=== PATIENT | male | born 1950 | race Caucasian/White ===

== ENCOUNTER → 2018-07-23 | Outpatient (CLI) | payer BC ==
--- NOTE | 2018-07-24 08:38 | KCIC ---
MRI left knee without contrast dated 07/23/2018 3:30 PM Indication: Knee pain history of arthritis . Instability Comparison: None Technique: Routine multiplanar multisequence imaging performed. . Findings: Moderate tricompartmental hypertrophic change with prominent marginal osteophytes. Thinning and surface irregularity of the articular cartilage throughout. Broad zones of full-thickness cartilage loss over the weightbearing surfaces medial femoral condyle and medial tibial plateau. Near full-thickness cartilage fissuring of the lateral patellar facet. Small joint effusion. There are multiple loose bodies at the posterior joint space. There is a small popliteal cyst with cystic focus extending along the pes anserine bursa with loose bodies at the inferior medial joint space and within the bursa. There is also a cystic focus along the posterior lateral aspect of the distal femur that measures 3.5 cm, likely a ganglion cyst. Anterior cruciate and posterior cruciate ligaments intact. Medial and lateral collateral complexes are intact. Iliotibial band, popliteus tendon and pes anserine compress within normal limits Quadriceps and patellar tendon are intact. No abnormality of the medial or lateral retinaculum. There is blunted morphology of the posterior horn of medial meniscus with linear signal throughout the meniscal substance. The anterior horn is intact. Minimal blunting of the medial meniscal body. Lateral meniscus normal in morphology and signal. There are a few prominent venous varicosities along the medial aspect of the knee. IMPRESSION: 1. Complex tear posterior horn of medial meniscus. 2. Moderate tricompartmental degenerative arthrosis and chondral malacia. Full-thickness cartilage loss at the medial compartment. 3. Small joint effusion and small popliteal cyst. There are multiple loose bodies throughout the joint space. 4. Septated cystic focus along the posterior lateral aspect of the distal femur, likely ganglion cyst. 5. Complex pes anserine bursitis. Electronically signed by: Dustin Parker MD (07/24/2018 8:36 AM) [facility]2
== END | disposition home or self-care (01) ==
LOC: KCIC MRI 15:08
PROVIDERS: ATTEND Nurse Practitioner Family
DX: S83.242A Other tear of medial meniscus, current injury, left knee, initial encounter (principal); M17.12 Unilateral primary osteoarthritis, left knee; M25.462 Effusion, left knee; M71.22 Synovial cyst of popliteal space [Baker], left knee; M71.562 Other bursitis, not elsewhere classified, left knee; X58.XXXA Exposure to other specified factors, initial encounter; Y93.89 Activity, other specified; Y92.89 Other specified places as the place of occurrence of the external cause; Y99.8 Other external cause status
CPT/HCPCS: 73721

== ENCOUNTER 2021-10-19 11:30 | Inpatient (IN) | payer BC, MEDICARE ==
[~2021-10-19] VITALS: Ht 172.7 cm; Wt 99.3 kg
--- NOTE | 2021-10-19 12:50 | ED.ADGEN ---
Past Medical History Additional Past Medical Histor: psoriasis Past Surgical History: Other Additional Past Surgical Histo: wrist, cataracts General Adult EDM: Chief Complaint: MECHANICAL FALL HPI: HPI: Patient is a 71 year old male coming in from home via EMS. Patient was evaluated at [place] emergency department yesterday after a fall off a ladder. Patient had a dislocated ankle with a distal fibula fracture of his left ankle. Ankle was reduced and splinted. And the x-ray did not been resulted came back as a tibial plateau fracture and a proximal fibula fracture. Patient was told to come back to the emergency department for evaluation. He has not been able to manage crutches or care for himself, at home recently had knee replacement and is unable to assist him. Review of Systems: Review of Systems: All other systems within normal limits except for as noted in the HPI Current Medications: Current Medications Medications (Trade) Dose Ordered Sig/Mauricio Start Time Stop Time Status Last Admin Dose Admin Fentanyl Citrate (Fentanyl 2ml Vial) 75 mcg 1X ONCE 10/19/21 13:15 10/19/21 13:51 DC 10/19/21 14:25 75 MCG Physical Exam: PE: Constitutional: Well developed, well nourished, no acute distress, non-toxic appearance. [] HENT: Normocephalic, atraumatic, bilateral external ears normal, nose normal. [] Eyes: PERRLA, conjunctiva normal, no discharge. [] Neck: No rigidity, supple, no stridor. [] Cardiovascular: Regular rate and rhythm, brisk cap refill [] Lungs & Thorax: Non labored symmetric respirations, no tachypnea or respiratory distress [] Abdomen: Soft, nondistended. Skin: Warm, dry, no erythema, no rash. [] Back: Unremarkable Extremities: No deformities, range of motion grossly intact, no lower extremity edema. Left knee swelling and tenderness, short posterior splint on left lower extremity [] Neurologic: Alert and oriented X 3, no focal deficits noted. [] Psychologic: Affect normal, judgement normal, mood normal. [] Current Patient Data: Labs: Laboratory Tests Test 10/19/21 13:18 White Blood Count 9.2 x10^3/uL (4.0-11.0) Red Blood Count 4.03 x10^6/uL (4.30-5.70) L Hemoglobin 12.6 g/dL (13.0-17.5) L Hematocrit 37.4 % (39.0-53.0) L Mean Corpuscular Volume 93 fL (79-100) Mean Corpuscular Hemoglobin 31 pg (25-35) Mean Corpuscular Hemoglobin Concent 34 g/dL (31-37) Red Cell Distribution Width 12.9 % (11.5-14.5) Platelet Count 221 x10^3/uL (140-400) Neutrophils (%) (Auto) 69 % (31-73) Lymphocytes (%) (Auto) 18 % (24-48) L Monocytes (%) (Auto) 11 % (0-9) H Eosinophils (%) (Auto) 2 % (0-3) Basophils (%) (Auto) 1 % (0-3) Neutrophils # (Auto) 6.3 x10^3/uL (1.8-7.7) Lymphocytes # (Auto) 1.6 x10^3/uL (1.0-4.8) Monocytes # (Auto) 1.0 x10^3/uL (0.0-1.1) Eosinophils # (Auto) 0.1 x10^3/uL (0.0-0.7) Basophils # (Auto) 0.1 x10^3/uL (0.0-0.2) Sodium Level 140 mmol/L (136-145) Potassium Level 4.5 mmol/L (3.5-5.1) Chloride Level 101 mmol/L (98-107) Carbon Dioxide Level 28 mmol/L (21-32) Anion Gap 11 (6-14) Blood Urea Nitrogen 11 mg/dL (8-26) Creatinine 1.0 mg/dL (0.7-1.3) Estimated GFR (Cockcroft-Gault) 73.2 BUN/Creatinine Ratio 11 (6-20) Glucose Level 91 mg/dL (70-99) Calcium Level 9.0 mg/dL (8.5-10.1) Total Bilirubin 1.0 mg/dL (0.2-1.0) Aspartate Amino Transferase (AST) 30 U/L (15-37) Alanine Aminotransferase (ALT) 25 U/L (16-63) Alkaline Phosphatase 53 U/L (46-116) Total Protein 8.6 g/dL (6.4-8.2) H Albumin 3.5 g/dL (3.4-5.0) Albumin/Globulin Ratio 0.7 (1.0-1.7) L Laboratory Tests 10/19/21 13:18 Laboratory Tests 10/19/21 13:18 Vital Signs: Vital Signs Date Time Temp Pulse Resp B/P (MAP) Pulse Ox O2 Delivery O2 Flow Rate FiO2 10/19/21 11:30 98.8 76 16 172/78 (109) 96 Room Air 98.8 EKG: EKG: [] Heart Score: C/O Chest Pain: No Risk Factors: Risk Factors: DM, Current or recent (<one month) smoker, HTN, HLP, family histo ry of CAD, obesity. Risk Scores: Score 0 - 3: 2.5% MACE over next 6 weeks - Discharge Home Score 4 - 6: 20.3% MACE over next 6 weeks - Admit for Clinical Observation Score 7 - 10: 72.7% MACE over next 6 weeks - Early Invasive Strategies Radiology/Procedures: Radiology/Procedures: [facility] [address] [place] [address] IMAGING REPORT Signed PATIENT: YESIKA ZAMARRIPA ACCOUNT: [id number] : 1950 LOCATION: ER AGE: 71 SEX: M EXAM STATUS: REG ER ORD. PHYSICIAN: IRINA QUIROZ MD REASON: fractures, knee and tib fib PROCEDURE: CT LOWER EXTREMITY WO LEFT EXAMINATION: CT LOWER LEFT EXTREMITY WITHOUT CONTRAST, 10/19/2021 12:42 PM CLINICAL INDICATION: Fractures of knee, tibia, and fibula COMPARISON: Left knee and ankle radiograph 10/18/2020 TECHNIQUE: Helical CT imaging performed of the left lower extremity from just above the knee through the ankle without the use of intravenous contrast. Sagittal and coronal reformats were obtained. One or more of the following individualized dose reduction techniques were utilized for this examination: 1. Automated exposure control 2. Adjustment of the mA and/or kV according to patient size 3. Use of iterative reconstruction technique. FINDINGS: There are acute fractures of the lateral and medial tibial plateaus posteriorly with 8 mm and 3 mm of depression, respectively. The visualized portion of the distal femur and patella are intact. Degenerative joint disease at the knee and chronic lateral subluxation of the tibia relative to femur is similar to MRI 07/23/2018. There are small chronic ossified bodies along the posterior medial aspect of the knee. There is a hemarthrosis and large Floyd's cyst. Change edema about the knee. There is an acute segmental fibular shaft fracture with an oblique component at the proximal fibular diaphysis displaced by one cortex width, and an oblique co mponent at the distal fibular diaphysis displaced by one half shaft width. There is a slightly displaced and rotated medial malleolar fracture. There is a minimally displaced small posterior malleolar fracture measuring 2.0 x 1.2 x 0.5 cm (transverse by CC by AP). This results in a 3 mm gap at the posterior articular surface. Probable small avulsion fracture of the anterolateral rim of the distal tibia (image 11, series 3) There is a tibiotalar joint effusion. Tendons are grossly intact without evidence of entrapment. There is subcutaneous edema in the ankle and foot. IMPRESSION: 1. Fractures of the lateral and medial tibial plateaus posteriorly with 8 mm and 3 mm of depression, respectively. 2. Segmental fibular shaft fracture with proximal and distal diaphyseal components. 3. Medial and posterior malleolar fractures. 4. Probable avulsion fracture of the anterolateral rim of the distal tibia. Electronically signed by: Irina Cheng MD (10/19/2021 2:01 PM) [id number] DICTATED and SIGNED BY: IRINA CHENG MD DATE: 10/19/21 [id number] [] Course & Med Decision Making: Course & Med Decision Making Discussed with Dr. White, does not need emergent surgical intervention. Recommend knee immobilizer for till plateau fracture is requesting CT scan be done. Patient will still need admission for physical therapy and possible rehab placement, he is unable to take care of himself and get up and move around at home, and does not have assistance for ADLs Marcion Disclaimer: Gerry Disclaimer: This electronic medical record was generated, in whole or in part, using a voice recognition dictation system. Departure Departure Impression: Primary Impression: Tibial plateau fracture, left Additional Impressions: Fracture of left proximal fibula Closed left ankle fracture Disposition: ADMITTED INPATIENT Admitting Physician: OLGA Condition: STABLE Referrals: JR LEWIS MD (PCP) Problem Qualifiers IRINA QUIROZ MD Oct 19, 2021 12:50
[2021-10-19] MEDS ORDERED: fentaNYL PF VIAL 100 MCG/2 ML VIAL IVP ONE (13:15)
[2021-10-19 13:32] LABS: BASO # 0.1 x10^3/uL (0.0-0.2); BASO % 1 % (0-3); EOS # 0.1 x10^3/uL (0.0-0.7); EOS % 2 % (0-3); HEMATOCRIT 37.4 % (39.0-53.0); HEMOGLOBIN 12.6 g/dL (13.0-17.5); LYMPH # 1.6 x10^3/uL (1.0-4.8); LYMPH % 18 % (24-48); MEAN CORPUSCULAR HEMOGLOBIN 31 pg (25-35); MEAN CORPUSCULAR HGB CONC 34 g/dL (31-37); MEAN CORPUSCULAR VOLUME 93 fL (79-100); MONO % 11 % (0-9); NEUT # 6.3 x10^3/uL (1.8-7.7); NEUT % 69 % (31-73); PLATELET COUNT 221 x10^3/uL (140-400); RED BLOOD COUNT 4.03 x10^6/uL (4.30-5.70); RED CELL DISTRIBUTION WIDTH 12.9 % (11.5-14.5); WHITE BLOOD COUNT 9.2 x10^3/uL (4.0-11.0)
[2021-10-19 13:52] LABS: GFR 73.2; POTASSIUM 4.5 mmol/L (3.5-5.1)
[2021-10-19 13:59] LABS: ALBUMIN 3.5 g/dL (3.4-5.0); ALBUMIN/GLOBULIN RATIO 0.7 (1.0-1.7); TOTAL PROTEIN 8.6 g/dL (6.4-8.2)
--- NOTE | 2021-10-19 14:03 | RAD ---
EXAMINATION: CT LOWER LEFT EXTREMITY WITHOUT CONTRAST, 10/19/2021 12:42 PM CLINICAL INDICATION: Fractures of knee, tibia, and fibula COMPARISON: Left knee and ankle radiograph 10/18/2020 TECHNIQUE: Helical CT imaging performed of the left lower extremity from just above the knee through the ankle without the use of intravenous contrast. Sagittal and coronal reformats were obtained. One or more of the following individualized dose reduction techniques were utilized for this examinat ion: 1. Automated exposure control 2. Adjustment of the mA and/or kV according to patient size 3. Use of iterative reconstruction technique. FINDINGS: There are acute fractures of the lateral and medial tibial plateaus posteriorly with 8 mm and 3 mm of depression, respectively. The visualized portion of the distal femur and patella are intact. Degener ative joint disease at the knee and chronic lateral subluxation of the tibia relative to femur is sim ilar to MRI 07/23/2018. There are small chronic ossified bodies along the posterior medial aspect of t he knee. There is a hemarthrosis and large Floyd's cyst. Change edema about the knee. There is an acute segmental fibular shaft fracture with an oblique component at the proximal fibular diaphysis displaced by one cortex width, and an oblique component at the distal fibular diaphysis dis placed by one half shaft width. There is a slightly displaced and rotated medial malleolar fracture. There is a minimally displaced small posterior malleolar fracture measuring 2.0 x 1.2 x 0.5 cm (trans verse by CC by AP). This results in a 3 mm gap at the posterior articular surface. Probable small avulsion fracture of the anterolateral rim of the distal tibia (image 11, series 3) There is a tibiotalar joint effusion. Tendons are grossly intact without evidence of entrapment. Ther e is subcutaneous edema in the ankle and foot. IMPRESSION: 1. Fractures of the lateral and medial tibial plateaus posteriorly with 8 mm and 3 mm of depression, respectively. 2. Segmental fibular shaft fracture with proximal and distal diaphyseal components. 3. Medial and posterior malleolar fractures. 4. Probable avulsion fracture of the anterolateral rim of the distal tibia. Electronically signed by: Irina Cheng MD (10/19/2021 2:01 PM) [id number]
--- NOTE | 2021-10-19 17:17 | PDOC1 ---
History and Physical Date of Admission Date of Admission DATE: 10/19/21 TIME: 17:15 Source Source: Chart review, Patient History of Present Illness History of Present Illness pt seen at [facility] ER yesterday after a fall. Fell from 15 foot ladder, had been taking down [place] decorations, fracture seen, reduced, brace and splinted and DC home, pt did poorly at home and could not manage with crutches, pain OK in ER he reports home meds for htn, lipids, psoriasis, is on Otezla, was the only med he could remember other than gabapentin and synthroid Past Medical History Cardiovascular: HTN, Hyperlipidemia Pulmonary: No pertinent hx Hepatobiliary: No pertinent hx Musculoskeletal: Osteoarthritis ENT: No pertinent hx Dermatology: Psoriasis Family History Family History: No Significant Social History Smoke: No ALCOHOL: none Current Problem List Problem List Problems Medical Problems: (1) Closed left ankle fracture Status: Acute (2) Fracture of left proximal fibula Status: Acute (3) Tibial plateau fracture, left Status: Acute Current Medications Current Medications Current Medications Fentanyl Citrate (Fentanyl 2ml Vial) 75 mcg 1X ONCE IVP Last administered on 10/19/21at 14:25; Start 10/19/21 at 13:15; Stop 10/19/21 at 13:51; Status DC Oxycodone/ Acetaminophen (Percocet 5/325) 1 tab PRN Q4HRS PRN PO PAIN; Start 10/19/21 at 17:15; Status UNV Ketorolac Tromethamine (Toradol 15mg Vial) 15 mg PRN Q6HRS PRN IVP INFLAMMATION; Start 10/19/21 at 17:15; Stop 10/24/21 at 17:14; Status UNV Allergies Allergies: Coded Allergies: cephalexin (Verified Allergy, Unknown, 10/19/21) erythromycin base (Verified Allergy, Unknown, 10/19/21) latex (Verified Allergy, Unknown, 10/19/21) sulfamethoxazole (Verified Allergy, Unknown, 10/19/21) trimethoprim (Verified Allergy, Unknown, 10/19/21) vancomycin (Verified Allergy, Unknown, 10/19/21) ROS General: No: Chills, Night Sweats, Fatigue, Malaise, Appetite, Other PSYCHOLOGICAL ROS: No: Anxiety, Behavioral Disorder, Concentration difficultie, Decreased libido, Depression, Disorientation, Hallucinations, Hostility, Irritablity, Memory difficulties, Mood Swings, Obsessive thoughts, Physical abuse, Sexual abuse, Sleep disturbances, Suicidal ideation, Other Eyes: No Blurry vision, No Decreased vision, No Double vision, No Dry eyes, No Excessive tearing, No Eye Pain, No Itchy Eyes, No Loss of vision, No Photophobia, No Scotomata, No Uses contacts, No Uses glasses, No Other HEENT: No: Heacaches, Visual Changes, Hearing change, Nasal congestion, Nasal discharge, Oral lesions, Sinus pain, Sore Throat, Epistaxis, Sneezing, Snoring, Tinnitus, Vertigo, Vocal changes, Other Respiratory: No: Cough, Hemoptysis, Orthopnea, Pleuritic Pain, Shortness of breath, SOB with excertion, Sputum Changes, Stridor, Tachypnea, Wheezing, Other Cardiovascular: No Chest Pain, No Palpitations, No Orthopnea, No Paroxysmal Noc. Dyspnea, No Edema, No Lt Headedness, No Other Gastrointestinal: No Nausea, No Vomiting, No Abdominal Pain, No Diarrhea, No Constipation, No Melena, No Hematochezia, No Other Genitourinary: No Dysuria, No Frequency, No Incontinence, No Hematuria, No Rete ntion, No Discharge, No Urgency, No Pain, No Flank Pain, No Other, No , No , No , No , No , No , No Musculoskeletal: Yes Joint Pain, Yes Joint Stiffness Neurological: Yes Gait Disturbance; No Behavorial Changes, No Bowel/Bladder ControlChng, No Confusion, No Dizziness, No Headaches, No Impaired Coord/balance, No Memory Loss, No Numbness/Tingling, No Seizures, No Speech Problems, No Tremors, No Visual Changes, No Weakness, No Other Skin: No Dry Skin, No Eczema, No Hair Changes, No Lumps, No Mole Changes, No Mottling, No Nail Changes, No Pruritus, No Rash, No Skin Lesion Changes, No Other, No Acne Physical Exam General: Alert, Oriented X3, No acute distress HEENT: Mucous membr. moist/pink Lungs: Normal air movement Heart: no gallops, no murmurs Extremities: No cyanosis, No edema, Other (left leg large brace, good pulses, ) Skin: No breakdown, No significant lesion Neuro: Normal speech, Normal tone, Sensation intact Psych/Mental Status: Mood NL Vitals Vitals Vital Signs Date Time Temp Pulse Resp B/P (MAP) Pulse Ox O2 Delivery O2 Flow Rate FiO2 10/19/21 14:25 16 97 Room Air 10/19/21 11:30 98.8 76 172/78 (109) 98.8 Labs Labs Laboratory Tests Test 10/19/21 13:18 White Blood Count 9.2 x10^3/uL (4.0-11.0) Red Blood Count 4.03 x10^6/uL (4.30-5.70) Hemoglobin 12.6 g/dL (13.0-17.5) Hematocrit 37.4 % (39.0-53.0) Mean Corpuscular Volume 93 fL (79-100) Mean Corpuscular Hemoglobin 31 pg (25-35) Mean Corpuscular Hemoglobin Concent 34 g/dL (31-37) Red Cell Distribution Width 12.9 % (11.5-14.5) Platelet Count 221 x10^3/uL (140-400) Neutrophils (%) (Auto) 69 % (31-73) Lymphocytes (%) (Auto) 18 % (24-48) Monocytes (%) (Auto) 11 % (0-9) Eosinophils (%) (Auto) 2 % (0-3) Basophils (%) (Auto) 1 % (0-3) Neutrophils # (Auto) 6.3 x10^3/uL (1.8-7.7) Lymphocytes # (Auto) 1.6 x10^3/uL (1.0-4.8) Monocytes # (Auto) 1.0 x10^3/uL (0.0-1.1) Eosinophils # (Auto) 0.1 x10^3/uL (0.0-0.7) Basophils # (Auto) 0.1 x10^3/uL (0.0-0.2) Sodium Level 140 mmol/L (136-145) Potassium Level 4.5 mmol/L (3.5-5.1) Chloride Level 101 mmol/L (98-107) Carbon Dioxide Level 28 mmol/L (21-32) Anion Gap 11 (6-14) Blood Urea Nitrogen 11 mg/dL (8-26) Creatinine 1.0 mg/dL (0.7-1.3) Estimated GFR (Cockcroft-Gault) 73.2 BUN/Creatinine Ratio 11 (6-20) Glucose Level 91 mg/dL (70-99) Calcium Level 9.0 mg/dL (8.5-10.1) Total Bilirubin 1.0 mg/dL (0.2-1.0) Aspartate Amino Transf (AST/SGOT) 30 U/L (15-37) Alanine Aminotransferase (ALT/SGPT) 25 U/L (16-63) Alkaline Phosphatase 53 U/L (46-116) Total Protein 8.6 g/dL (6.4-8.2) Albumin 3.5 g/dL (3.4-5.0) Albumin/Globulin Ratio 0.7 (1.0-1.7) Laboratory Tests Test 10/19/21 13:18 White Blood Count 9.2 x10^3/uL (4.0-11.0) Red Blood Count 4.03 x10^6/uL (4.30-5.70) Hemoglobin 12.6 g/dL (13.0-17.5) Hematocrit 37.4 % (39.0-53.0) Mean Corpuscular Volume 93 fL (79-100) Mean Corpuscular Hemoglobin 31 pg (25-35) Mean Corpuscular Hemoglobin Concent 34 g/dL (31-37) Red Cell Distribution Width 12.9 % (11.5-14.5) Platelet Count 221 x10^3/uL (140-400) Neutrophils (%) (Auto) 69 % (31-73) Lymphocytes (%) (Auto) 18 % (24-48) Monocytes (%) (Auto) 11 % (0-9) Eosinophils (%) (Auto) 2 % (0-3) Basophils (%) (Auto) 1 % (0-3) Neutrophils # (Auto) 6.3 x10^3/uL (1.8-7.7) Lymphocytes # (Auto) 1.6 x10^3/uL (1.0-4.8) Monocytes # (Auto) 1.0 x10^3/uL (0.0-1.1) Eosinophils # (Auto) 0.1 x10^3/uL (0.0-0.7) Basophils # (Auto) 0.1 x10^3/uL (0.0-0.2) Sodium Level 140 mmol/L (136-145) Potassium Level 4.5 mmol/L (3.5-5.1) Chloride Level 101 mmol/L (98-107) Carbon Dioxide Level 28 mmol/L (21-32) Anion Gap 11 (6-14) Blood Urea Nitrogen 11 mg/dL (8-26) Creatinine 1.0 mg/dL (0.7-1.3) Estimated GFR (Cockcroft-Gault) 73.2 BUN/Creatinine Ratio 11 (6-20) Glucose Level 91 mg/dL (70-99) Calcium Level 9.0 mg/dL (8.5-10.1) Total Bilirubin 1.0 mg/dL (0.2-1.0) Aspartate Amino Transf (AST/SGOT) 30 U/L (15-37) Alanine Aminotransferase (ALT/SGPT) 25 U/L (16-63) Alkaline Phosphatase 53 U/L (46-116) Total Protein 8.6 g/dL (6.4-8.2) Albumin 3.5 g/dL (3.4-5.0) Albumin/Globulin Ratio 0.7 (1.0-1.7) Images Images CXR 10/18 FINDINGS: A dual-lead pacemaker is unchanged. The heart is normal in size. The lungs are adequately expanded. Right lower lobe consolidation has resolved. There is no new consolidation, pleural effusion or pneumothorax. ankle 10/18, IMPRESSION: f/u 1. Interval reduction of ankle dislocation, now near-anatomic alignment. 2. Improved alignment of distal fibular, medial malleolar, and posterior malleolar fractures. Electronically signed by: Irina Cheng MD (10/18/2021 3:38 PM) VTE Prophylaxis Ordered VTE Prophylaxis Devices: No VTE Pharmacological Prophylaxi: Yes Assessment/Plan Assessment/Plan FALL From 15 foot ladder ankle dislocation, now near-anatomic alignment. good alignment of distal fibular, medial malleolar, and posterior malleolar fractures. PT and OT eval, may need skilled ortho to see, may need f/u cont current home meds when list avail, hypothyroid, 73 htn, lpids, Justifications for Admission Other Justification BANDAR PULLIAM MD Oct 19, 2021 17:17
[2021-10-19] MEDS ORDERED: DOCUSATE SODIUM 100 MG CAPSULE. PO PRN (17:30)
[2021-10-19 19:00] VITALS: BP 157/71
[2021-10-19] MEDS ORDERED: DESO15OI3 TP (20:35)
[2021-10-19] MEDS ORDERED: PANT40TA77 PO (20:35)
[2021-10-19] MEDS ORDERED: EZET10TA20 PO (20:35)
[2021-10-19] MEDS ORDERED: CICL6.1H3 IH (20:35)
[2021-10-19] MEDS ORDERED: PROVENTIL HFA6.7 G2 INH (20:35)
[2021-10-19] MEDS ORDERED: [UNRECOGNIZED DRUG - OTHER] PO (20:35)
[2021-10-19] MEDS ORDERED: PATENOL (20:35)
[2021-10-19] MEDS ORDERED: GABA300C18 PO (20:35)
[2021-10-19] MEDS ORDERED: FLUT16AE NS (20:35)
[2021-10-19] MEDS ORDERED: APRE30TA2 PO (20:35)
[2021-10-19] MEDS ORDERED: LEVO75TA90 PO (20:35)
[2021-10-19] MEDS: ZOLPIDEM 5 MG TABLET. PO PRN (21:02)
[2021-10-19] MEDS: oxyCODONE/APAP 5/325 1 TAB TABLET PO PRN (21:02)
[2021-10-19] MEDS: ENOXAPARIN 40 MG/0.4 ML SYRINGE. SQ SCH (21:02)
[2021-10-19] MEDS: GABAPENTIN 300 MG CAPSULE. PO SCH (21:02)
[2021-10-19] MEDS: KETOROLAC 30 MG/ML VIAL. IVP PRN (21:03)
[2021-10-19 23:00] VITALS: BP 138/67
[2021-10-20 03:00] VITALS: BP 133/72
[2021-10-20] MEDS ORDERED: C.DIFF MED SCREEN BY RX. MC PRN (03:15)
[2021-10-20] MEDS ORDERED: LEVOTHYROXINE 75 MCG TABLET PO SCH (06:00)
[2021-10-20 07:00] VITALS: BP 139/83
[2021-10-20] MEDS: GABAPENTIN 300 MG CAPSULE. PO SCH ×3 (08:36→21:45)
[2021-10-20] MEDS: DOCUSATE SODIUM 100 MG CAPSULE. PO SCH (09:00)
--- NOTE | 2021-10-20 09:12 | PDOC2 ---
CONSULT Date of Consult Date of Consult DATE: 10/20/21 TIME: 08:49 Reason for Consult Reason for Consult: Tibial plateau and ankle fractures Referring Physician Referring Physician: Farhat Identification/Chief Complaint Chief Complaint Left knee pain Source Source: Chart review, Patient History of Present Illness Reason for Visit: Patient is a pleasant 71-year-old gentleman who had a fall about 2 days ago, he fell off of a ladder taking down Pat lights. He noted pain mainly at his ankle, he had a fracture dislocation that was reduced at an outside facility and he was splinted. Due to continued pain and inability to provide self-care, he came into the hospital yesterday and was admitted. A CT of his left lower extremity has been performed. He is complaining mainly of knee pain and swelling. He can wiggle his toes. He is also saying that his right shoulder hurts, he feels like he has good motion, but is just sore when he is trying to feed himself. He does not recall injuring his shoulder in the fall at all. Past Medical History Cardiovascular: HTN, Hyperlipidemia Pulmonary: No pertinent hx Hepatobiliary: No pertinent hx Musculoskeletal: Osteoarthritis ENT: No pertinent hx Dermatology: Psoriasis Family History Family History: No Significant Social History No ALCOHOL: none Current Problem List Problem List Problems Medical Problems: (1) Closed left ankle fracture Status: Acute (2) Fracture of left proximal fibula Status: Acute (3) Tibial plateau fracture, left Status: Acute Current Medications Current Medications Current Medications Fentanyl Citrate (Fentanyl 2ml Vial) 75 mcg 1X ONCE IVP Last administered on 10/19/21at 14:25; Start 10/19/21 at 13:15; Stop 10/19/21 at 13:51; Status DC Oxycodone/ Acetaminophen (Percocet 5/325) 1 tab PRN Q4HRS PRN PO PAIN Last administered on 10/19/21at 21:02; Start 10/19/21 at 17:15 Ketorolac Tromethamine (Toradol 30mg Vial) 15 mg PRN Q6HRS PRN IVP INFLAMMATION Last administered on 10/19/21at 21:03; Start 10/19/21 at 17:30; Stop 10/24/21 at 17:29 Enoxaparin Sodium (Lovenox Per Pharmacy Prophylaxis Dosing) 1 each PRN DAILY PRN MC SEE COMMENTS; Start 10/19/21 at 17:30 Docusate Sodium (Colace) 100 mg DAILY PO ; Start 10/20/21 at 09:00 Docusate Sodium (Colace) 100 mg PRN DAILY PRN PO HARD STOOLS; Start 10/19/21 at 17:30 Zolpidem Tartrate (Ambien) 5 mg PRN QHS PRN PO INSOMNIA Last administered on 10/19/21at 21:02; Start 10/19/21 at 17:30 Enoxaparin Sodium (Lovenox 40mg Syringe) 40 mg Q24H SQ Last administered on 10/19/21at 21:02; Start 10/19/21 at 21:00 Levothyroxine Sodium (Synthroid) 75 mcg DAILY06 PO Last administered on 10/20/21at 06:22; Start 10/20/21 at 06:00 Gabapentin (Neurontin) 300 mg TID PO Last administered on 10/20/21at 08:36; Start 10/19/21 at 21:00 Amlodipine Besylate (Norvasc) 2.5 mg DAILY PO Last administered on 10/20/21at 08:37; Start 10/20/21 at 09:00 Pharmacy Consult (C.diff Med Screen By Rx) 1 each 1X PRN PRN MC SEE ADMIN INSTRUCTIONS; Start 10/20/21 at 03:15 Active Scripts Active Reported Desonide 15 Gm Oint...g. 1 Wale TP BID apply to affected area(s) Pantoprazole Sodium (Pantoprazole Sodium) 40 Mg Tablet.dr 40 Mg PO DAILYAC Otezla (Apremilast) 30 Mg Tablet 1 Tab PO BID 30 Days Gabapentin (Gabapentin) 300 Mg Capsule 300 Mg PO TID Synthroid (Levothyroxine Sodium) 75 Mcg Tablet 1 Tab PO DAILY [patenol] 1 PRN BID PRN Xhance (Fluticasone Propionate) 16 Ml Aer.br.act 16 Ml NS DAILY [levecetrizi] 5 Mg PO DAILY Proventil Hfa (Albuterol Sulfate) 6.7 Gm Hfa.aer.ad 2 Puff INH DAILY OK PRN Zetia (Ezetimibe) 10 Mg Tablet 1 Tab PO DAILY 30 Days Alvesco (Ciclesonide) 6.1 Gm Hfa.aer.ad 6.1 Gm IH BID Allergies Allergies: Coded Allergies: cephalexin (Verified Allergy, Intermediate, 10/20/21) erythromycin base (Verified Allergy, Intermediate, 10/20/21) latex (Verified Allergy, Intermediate, 10/20/21) sulfamethoxazole (Verified Allergy, Intermediate, 10/20/21) trimethoprim (Verified Allergy, Intermediate, 10/20/21) vancomycin (Verified Allergy, Intermediate, 10/20/21) ROS General: No: Chills, Night Sweats, Fatigue, Malaise, Appetite, Other PSYCHOLOGICAL ROS: No: Anxiety, Behavioral Disorder, Concentration difficultie, Decreased libido, Depression, Disorientation, Hallucinations, Hostility, Irritablity, Memory difficulties, Mood Swings, Obsessive thoughts, Physical abuse, Sexual abuse, Sleep disturbances, Suicidal ideation, Other Eyes: No Blurry vision, No Decreased vision, No Double vision, No Dry eyes, No Excessive tearing, No Eye Pain, No Itchy Eyes, No Loss of vision, No Photophobia, No Scotomata, No Uses contacts, No Uses glasses, No Other HEENT: No: Heacaches, Visual Changes, Hearing change, Nasal congestion, Nasal discharge, Oral lesions, Sinus pain, Sore Throat, Epistaxis, Sneezing, Snoring, Tinnitus, Vertigo, Vocal changes, Other ALLERGY AND IMMUNOLOGY: No: Hives, Insect Bite Sensitivity, Itchy/Watery Eyes, Nasal Congestion, Post Nasal Drip, Seasonal Allergies, Other Hematological and Lymphatic: No: Bleeding Problems, Blood Clots, Blood Transfusions, Brusing, Night Sweats, Pallor, Swollen Lymph Nodes, Other ENDOCRINE: No: Breast Changes, Galactorrhea, Hair Pattern Changes, Hot Flashes, Malaise/lethargy, Mood Swings, Palpitations, Polydipsia/polyuria, Skin Changes, Temperature Intolerance, Unexpected Weight Changes, Other Respiratory: No: Cough, Hemoptysis, Orthopnea, Pleuritic Pain, Shortness of breath, SOB with excertion, Sputum Changes, Stridor, Tachypnea, Wheezing, Other Cardiovascular: No Chest Pain, No Palpitations, No Orthopnea, No Paroxysmal Noc. Dyspnea, No Edema, No Lt Headedness, No Other Gastrointestinal: No Nausea, No Vomiting, No Abdominal Pain, No Diarrhea, No Constipation, No Melena, No Hematochezia, No Other Genitourinary: No Dysuria, No Frequency, No Incontinence, No Hematuria, No Rete ntion, No Discharge, No Urgency, No Pain, No Flank Pain, No Other, No , No , No , No , No , No , No Musculoskeletal: No Gait Disturbance, No Joint Pain, No Joint Stiffness, No Joint Swelling, No Muscle Pain, No Muscular Weakness, No Pain In:, No Swelling In:, No Other Neurological: No Behavorial Changes, No Bowel/Bladder ControlChng, No Confusion, No Dizziness, No Gait Disturbance, No Headaches, No Impaired Coord/balance, No Memory Loss, No Numbness/Tingling, No Seizures, No Speech Problems, No Tremors, No Visual Changes, No Weakness, No Other Skin: No Dry Skin, No Eczema, No Hair Changes, No Lumps, No Mole Changes, No Mottling, No Nail Changes, No Pruritus, No Rash, No Skin Lesion Changes, No Other, No Acne Physical Exam General: Alert, Oriented X3 HEENT: Atraumatic, EOMI Lungs: Other (Respirations are unlabored with symmetric chest rise) Heart: Regular rate Abdomen: Soft, No tenderness Extremities: Normal pulses Skin: No rashes, No breakdown Neuro: Normal speech, Strength at 5/5 X4 ext Psych/Mental Status: Mental status NL, Mood NL MUSCULOSKELETAL: Not examined, Other (Examination of his right upper extremity reveals no gross deformity. He has near full range of motion of the shoulder in all planes. He is tender around the deltoid tuberosity. Examination of his left lower extremity reveals sensations intact, good capillary refill, he can wiggle his toes. Immobilizer in place U-splint in place over his ankle.) Vitals VITALS Vital Signs Date Time Temp Pulse Resp B/P (MAP) Pulse Ox O2 Delivery O2 Flow Rate FiO2 10/20/21 08:37 71 133/63 10/20/21 03:00 97.8 16 93 Room Air 97.8 10/19/21 23:00 2.0 Labs Labs Laboratory Tests Test 10/19/21 13:18 10/19/21 16:10 White Blood Count 9.2 x10^3/uL (4.0-11.0) Red Blood Count 4.03 x10^6/uL (4.30-5.70) Hemoglobin 12.6 g/dL (13.0-17.5) Hematocrit 37.4 % (39.0-53.0) Mean Corpuscular Volume 93 fL (79-100) Mean Corpuscular Hemoglobin 31 pg (25-35) Mean Corpuscular Hemoglobin Concent 34 g/dL (31-37) Red Cell Distribution Width 12.9 % (11.5-14.5) Platelet Count 221 x10^3/uL (140-400) Neutrophils (%) (Auto) 69 % (31-73) Lymphocytes (%) (Auto) 18 % (24-48) Monocytes (%) (Auto) 11 % (0-9) Eosinophils (%) (Auto) 2 % (0-3) Basophils (%) (Auto) 1 % (0-3) Neutrophils # (Auto) 6.3 x10^3/uL (1.8-7.7) Lymphocytes # (Auto) 1.6 x10^3/uL (1.0-4.8) Monocytes # (Auto) 1.0 x10^3/uL (0.0-1.1) Eosinophils # (Auto) 0.1 x10^3/uL (0.0-0.7) Basophils # (Auto) 0.1 x10^3/uL (0.0-0.2) Sodium Level 140 mmol/L (136-145) Potassium Level 4.5 mmol/L (3.5-5.1) Chloride Level 101 mmol/L (98-107) Carbon Dioxide Level 28 mmol/L (21-32) Anion Gap 11 (6-14) Blood Urea Nitrogen 11 mg/dL (8-26) Creatinine 1.0 mg/dL (0.7-1.3) Estimated GFR (Cockcroft-Gault) 73.2 BUN/Creatinine Ratio 11 (6-20) Glucose Level 91 mg/dL (70-99) Calcium Level 9.0 mg/dL (8.5-10.1) Total Bilirubin 1.0 mg/dL (0.2-1.0) Aspartate Amino Transf (AST/SGOT) 30 U/L (15-37) Alanine Aminotransferase (ALT/SGPT) 25 U/L (16-63) Alkaline Phosphatase 53 U/L (46-116) Total Protein 8.6 g/dL (6.4-8.2) Albumin 3.5 g/dL (3.4-5.0) Albumin/Globulin Ratio 0.7 (1.0-1.7) SARS-CoV-2 Antigen (Rapid) Negative (NEGATIVE) Laboratory Tests Test 10/19/21 13:18 10/19/21 16:10 White Blood Count 9.2 x10^3/uL (4.0-11.0) Red Blood Count 4.03 x10^6/uL (4.30-5.70) Hemoglobin 12.6 g/dL (13.0-17.5) Hematocrit 37.4 % (39.0-53.0) Mean Corpuscular Volume 93 fL (79-100) Mean Corpuscular Hemoglobin 31 pg (25-35) Mean Corpuscular Hemoglobin Concent 34 g/dL (31-37) Red Cell Distribution Width 12.9 % (11.5-14.5) Platelet Count 221 x10^3/uL (140-400) Neutrophils (%) (Auto) 69 % (31-73) Lymphocytes (%) (Auto) 18 % (24-48) Monocytes (%) (Auto) 11 % (0-9) Eosinophils (%) (Auto) 2 % (0-3) Basophils (%) (Auto) 1 % (0-3) Neutrophils # (Auto) 6.3 x10^3/uL (1.8-7.7) Lymphocytes # (Auto) 1.6 x10^3/uL (1.0-4.8) Monocytes # (Auto) 1.0 x10^3/uL (0.0-1.1) Eosinophils # (Auto) 0.1 x10^3/uL (0.0-0.7) Basophils # (Auto) 0.1 x10^3/uL (0.0-0.2) Sodium Level 140 mmol/L (136-145) Potassium Level 4.5 mmol/L (3.5-5.1) Chloride Level 101 mmol/L (98-107) Carbon Dioxide Level 28 mmol/L (21-32) Anion Gap 11 (6-14) Blood Urea Nitrogen 11 mg/dL (8-26) Creatinine 1.0 mg/dL (0.7-1.3) Estimated GFR (Cockcroft-Gault) 73.2 BUN/Creatinine Ratio 11 (6-20) Glucose Level 91 mg/dL (70-99) Calcium Level 9.0 mg/dL (8.5-10.1) Total Bilirubin 1.0 mg/dL (0.2-1.0) Aspartate Amino Transf (AST/SGOT) 30 U/L (15-37) Alanine Aminotransferase (ALT/SGPT) 25 U/L (16-63) Alkaline Phosphatase 53 U/L (46-116) Total Protein 8.6 g/dL (6.4-8.2) Albumin 3.5 g/dL (3.4-5.0) Albumin/Globulin Ratio 0.7 (1.0-1.7) SARS-CoV-2 Antigen (Rapid) Negative (NEGATIVE) Images Images Pre and post reduction x-rays were reviewed, knee x-rays were reviewed. These images were interpreted by myself. CAT scan was reviewed, the CAT scan was also interpreted by myself. He has a minimally displaced tibial plateau fracture, favoring extra-articular portion. Proximal fibular fracture seen. Regarding his ankle, he had a displaced trimalleolar ankle fracture dislocation. Assessment/Plan Assessment/Plan I did discuss with him that we will pursue nonoperative treatment for his tibial plateau fracture. I recommend anticoagulation through Monday, we will stop it for surgery which will be scheduled for this coming Monday., This will be for his ankle. I did discuss the risks, benefits, alternatives and rationale to operative fixation of his left ankle and answered his questions regarding this. I would recommend placement until then and likely after surgery as well given the functional limitations he will have and the fact that he has no help at home, as his is currently recovering from knee replacement. PAULA FLORES II, MD Oct 20, 2021 09:12
--- NOTE | 2021-10-20 09:36 | RAD ---
XR SHOULDER_RIGHT 2+ VIEWS 10/20/2021 8:59 AM INDICATION: Pain after fall COMPARISON: None available. TECHNIQUE: 3 views the right shoulder are provided. FINDINGS/ IMPRESSION: There is no acute fracture or dislocation. Mild acromioclavicular osteoarthrosis with marginal osteop hytosis. Bone mineralization is within normal limits. Regional soft tissues are within normal limits. There is no soft tissue gas or osseous erosion. No radiopaque foreign body. Electronically signed by: Zuly Leone MD (10/20/2021 9:34 AM) [id number]
[2021-10-20 11:00] VITALS: BP 157/72
--- NOTE | 2021-10-20 11:19 | PDOC ---
[employer] PROGRESS NOTE Date of Service DOS: DATE: 10/20/21 TIME: 11:17 Chief Complaint Chief Complaint Fall from 15 foot ladder with the following ankle fractures 1. Fractures of the lateral and medial tibial plateaus posteriorly with 8 mm and 3 mm of depression, respectively. 2. Segmental fibular shaft fracture with proximal and distal diaphyseal components. 3. Medial and posterior malleolar fractures. 4. Probable avulsion fracture of the anterolateral rim of the distal tibia. History of the following; Hypertension Hyperlipidemia Psoriasis Hypothyroidism History of Present Illness History of Present Illness 10/20/2021 Patient seen and examined Discussed with RN Chart reviewed Discussed with case management He is going to the OR later Vitals/I&O Vitals/I&O: Vital Signs Date Time Temp Pulse Resp B/P (MAP) Pulse Ox O2 Delivery O2 Flow Rate FiO2 10/20/21 08:37 71 133/63 10/20/21 07:00 98.3 20 98 Room Air 98.3 10/19/21 23:00 2.0 I & O 10/19/21 10/19/21 10/20/21 15:00 23:00 07:00 Intake Total 0 ml Output Total 500 ml Balance -500 ml Physical Exam General: Alert, Oriented X3 Heart: Regular rate Abdomen: Soft, No tenderness Extremities: Normal pulses Skin: No rashes, No breakdown Labs Labs: Laboratory Tests Test 10/19/21 13:18 10/19/21 16:10 White Blood Count 9.2 x10^3/uL (4.0-11.0) Red Blood Count 4.03 x10^6/uL (4.30-5.70) Hemoglobin 12.6 g/dL (13.0-17.5) Hematocrit 37.4 % (39.0-53.0) Mean Corpuscular Volume 93 fL (79-100) Mean Corpuscular Hemoglobin 31 pg (25-35) Mean Corpuscular Hemoglobin Concent 34 g/dL (31-37) Red Cell Distribution Width 12.9 % (11.5-14.5) Platelet Count 221 x10^3/uL (140-400) Neutrophils (%) (Auto) 69 % (31-73) Lymphocytes (%) (Auto) 18 % (24-48) Monocytes (%) (Auto) 11 % (0-9) Eosinophils (%) (Auto) 2 % (0-3) Basophils (%) (Auto) 1 % (0-3) Neutrophils # (Auto) 6.3 x10^3/uL (1.8-7.7) Lymphocytes # (Auto) 1.6 x10^3/uL (1.0-4.8) Monocytes # (Auto) 1.0 x10^3/uL (0.0-1.1) Eosinophils # (Auto) 0.1 x10^3/uL (0.0-0.7) Basophils # (Auto) 0.1 x10^3/uL (0.0-0.2) Sodium Level 140 mmol/L (136-145) Potassium Level 4.5 mmol/L (3.5-5.1) Chloride Level 101 mmol/L (98-107) Carbon Dioxide Level 28 mmol/L (21-32) Anion Gap 11 (6-14) Blood Urea Nitrogen 11 mg/dL (8-26) Creatinine 1.0 mg/dL (0.7-1.3) Estimated GFR (Cockcroft-Gault) 73.2 BUN/Creatinine Ratio 11 (6-20) Glucose Level 91 mg/dL (70-99) Calcium Level 9.0 mg/dL (8.5-10.1) Total Bilirubin 1.0 mg/dL (0.2-1.0) Aspartate Amino Transf (AST/SGOT) 30 U/L (15-37) Alanine Aminotransferase (ALT/SGPT) 25 U/L (16-63) Alkaline Phosphatase 53 U/L (46-116) Total Protein 8.6 g/dL (6.4-8.2) Albumin 3.5 g/dL (3.4-5.0) Albumin/Globulin Ratio 0.7 (1.0-1.7) SARS-CoV-2 RNA (NASIR) Negative (Negative) SARS-CoV-2 Antigen (Rapid) Negative (NEGATIVE) Assessment and Plan Assessmemt and Plan Problems Medical Problems: (1) Closed left ankle fracture Status: Acute (2) Fracture of left proximal fibula Status: Acute (3) Tibial plateau fracture, left Status: Acute Fall from 15 foot ladder with the following ankle fractures 1. Fractures of the lateral and medial tibial plateaus posteriorly with 8 mm and 3 mm of depression, respectively. 2. Segmental fibular shaft fracture with proximal and distal diaphyseal components. 3. Medial and posterior malleolar fractures. 4. Probable avulsion fracture of the anterolateral rim of the distal tibia. History of the following; Hypertension Hyperlipidemia Psoriasis Hypothyroidism Plan He is going to the OR later today Postoperatively he will need wound care PT OT Pain meds long term unit evaluation DVT prophylaxis Full code Comment Review of Relevant I have reviewed the following items maria isabel (where applicable) has been applied. Medications: Current Medications Medications (Trade) Dose Ordered Sig/Mauricio Route PRN Reason Start Time Stop Time Status Last Admin Dose Admin Fentanyl Citrate (Fentanyl 2ml Vial) 75 mcg 1X ONCE IVP 10/19/21 13:15 10/19/21 13:51 DC 10/19/21 14:25 Oxycodone/ Acetaminophen (Percocet 5/325) 1 tab PRN Q4HRS PRN PO PAIN 10/19/21 17:15 10/19/21 21:02 Ketorolac Tromethamine (Toradol 30mg Vial) 15 mg PRN Q6HRS PRN IVP INFLAMMATION 10/19/21 17:30 10/24/21 17:29 10/19/21 21:03 Docusate Sodium (Colace) 100 mg DAILY PO 10/20/21 09:00 10/20/21 09:00 Zolpidem Tartrate (Ambien) 5 mg PRN QHS PRN PO INSOMNIA 10/19/21 17:30 10/19/21 21:02 Enoxaparin Sodium (Lovenox 40mg Syringe) 40 mg Q24H SQ 10/19/21 21:00 10/19/21 21:02 Levothyroxine Sodium (Synthroid) 75 mcg DAILY06 PO 10/20/21 06:00 10/20/21 06:22 Gabapentin (Neurontin) 300 mg TID PO 10/19/21 21:00 10/20/21 08:36 Amlodipine Besylate (Norvasc) 2.5 mg DAILY PO 10/20/21 09:00 10/20/21 08:37 Justifications for Admission Other Justification ANA URBAN III DO Oct 20, 2021 11:19
--- NOTE | 2021-10-20 14:26 | NUR ---
SW following. Discussed with RN, pt from home, room air, regular diet, COVID-19 negative. Ortho - surgery seems to be scheduled for Monday next week. PT recommending SNF at this time, will need to review after surgery. SW will continue to follow.
[2021-10-20 15:00] VITALS: BP 164/70
[2021-10-20] MEDS ORDERED: NON FORMULARY ITEM (Albuterol Sulfate (Proventil Hfa) 2 PUFF) INH PRN (18:30)
[2021-10-20] MEDS ORDERED: ALBUTEROL SULFATE 2.5 MG/3 ML NEBU. NEB PRN (18:45)
[2021-10-20] MEDS ORDERED: KETOROLAC TROMETHAMINE 0.5% OPHTH SOLUTION 5ML BOTTLE. OD PRN (18:45)
[2021-10-20 19:00] VITALS: BP 132/57
[2021-10-20] MEDS: OTEZLA PO SCH (20:06)
[2021-10-20] MEDS ORDERED: NON FORMULARY ITEM (Ciclesonide (Alvesco) 6.1 GM) IH SCH (21:00)
[2021-10-20] MEDS: oxyCODONE/APAP 5/325 1 TAB TABLET PO PRN (21:45)
[2021-10-20] MEDS: ENOXAPARIN 40 MG/0.4 ML SYRINGE. SQ SCH (21:46)
[2021-10-20] MEDS: ZOLPIDEM 5 MG TABLET. PO PRN (21:46)
[2021-10-20] MEDS: HYDROCORTISONE 1% TOPICAL CREAM 30GM TUBE. TP SCH (21:46)
[2021-10-20] MEDS: KETOROLAC 30 MG/ML VIAL. IVP PRN (21:47)
[2021-10-20 23:00] VITALS: BP 140/76
[2021-10-21 07:00] VITALS: BP 140/80
[2021-10-21] MEDS: LEVOTHYROXINE 75 MCG TABLET PO SCH (07:07)
[2021-10-21] MEDS: EZETIMIBE 10 MG TABLET. PO SCH (08:25)
[2021-10-21] MEDS: HYDROCORTISONE 1% TOPICAL CREAM 30GM TUBE. TP SCH ×2 (08:26→21:22)
[2021-10-21] MEDS: OTEZLA PO SCH ×2 (08:26→21:21)
[2021-10-21] MEDS: GABAPENTIN 300 MG CAPSULE. PO SCH ×3 (08:26→21:21)
[2021-10-21] MEDS: CETIRIZINE HCL 10 MG TABLET. PO SCH (08:26)
[2021-10-21] MEDS: DOCUSATE SODIUM 100 MG CAPSULE. PO SCH (08:26)
[2021-10-21] MEDS: PANTOPRAZOLE 40 MG TABLET.DR. PO SCH (08:26)
[2021-10-21] MEDS: FLUTICASONE 50MCG/NASAL SPRAY 16GM BOTTLE. NS SCH (08:32)
[2021-10-21 11:00] VITALS: BP 108/85
--- NOTE | 2021-10-21 12:30 | PDOC ---
[facility] [facility] PROGRESS NOTE Date of Service DOS: DATE: 10/21/21 TIME: 12:28 Chief Complaint Chief Complaint Fall from 15 foot ladder with the following ankle fractures 1. Fractures of the lateral and medial tibial plateaus posteriorly with 8 mm and 3 mm of depression, respectively. 2. Segmental fibular shaft fracture with proximal and distal diaphyseal components. 3. Medial and posterior malleolar fractures. 4. Probable avulsion fracture of the anterolateral rim of the distal tibia. History of the following; Hypertension Hyperlipidemia Psoriasis Hypothyroidism History of Present Illness History of Present Illness 10/21/2021 Patient seen and examined Discussed with RN Discussed with case management Discussed with Dr. White Per orthopedics , surgery is on hold until next Monday because there is so much tissue damage, swelling around the fractures that it puts the patient at high risk for postoperative complications unless we wait a few days, agree. 10/20/2021 Patient seen and examined Discussed with RN Chart reviewed Discussed with case management He is going to the OR later Vitals/I&O Vitals/I&O: Vital Signs Date Time Temp Pulse Resp B/P (MAP) Pulse Ox O2 Delivery O2 Flow Rate FiO2 10/21/21 08:27 75 140/80 10/21/21 07:00 99.0 20 95 Room Air 99.0 10/20/21 08:00 95.0 I & O 10/20/21 10/20/21 10/21/21 15:00 23:00 07:00 Intake Total 240 ml 840 ml Output Total 450 ml Balance 240 ml 390 ml Physical Exam General: Alert, Oriented X3 Heart: Regular rate Abdomen: Soft, No tenderness Extremities: Normal pulses Skin: No rashes, No breakdown Assessment and Plan Assessmemt and Plan Problems Medical Problems: (1) Closed left ankle fracture Status: Acute (2) Fracture of left proximal fibula Status: Acute (3) Tibial plateau fracture, left Status: Acute Fall from 15 foot ladder with the following ankle fractures 1. Fractures of the lateral and medial tibial plateaus posteriorly with 8 mm and 3 mm of depression, respectively. 2. Segmental fibular shaft fracture with proximal and distal diaphyseal componen ts. 3. Medial and posterior malleolar fractures. 4. Probable avulsion fracture of the anterolateral rim of the distal tibia. History of the following; Hypertension Hyperlipidemia Psoriasis Hypothyroidism Plan He is going to the OR next Monday for now continue the following; Awaiting possible transfer to shelter and then he could come back for surgery? (Discussed with case management they are checking into it) PT OT Pain meds Home meds Trend labs DVT prophylaxis Full code Comment Review of Relevant I have reviewed the following items maria isabel (where applicable) has been applied. Medications: Current Medications Medications (Trade) Dose Ordered Sig/Mauricio Route PRN Reason Start Time Stop Time Status Last Admin Dose Admin EZETIMIBE (Zetia) 10 mg DAILY PO 10/21/21 09:00 10/21/21 08:25 Gabapentin (Neurontin) 300 mg TID PO 10/20/21 21:00 10/21/21 08:26 Levothyroxine Sodium (Synthroid) 75 mcg DAILY06 PO 10/21/21 06:00 10/21/21 07:07 Pantoprazole Sodium (Protonix) 40 mg DAILYAC PO 10/21/21 07:30 10/21/21 08:26 Hydrocortisone (Cortaid) 1 chloe BID TP 10/20/21 21:00 10/21/21 08:26 Fluticasone Propionate (Flonase) 2 spray DAILY NS 10/21/21 09:00 10/21/21 08:32 Cetirizine HCl (ZyrTEC) 10 mg DAILY PO 10/21/21 09:00 10/21/21 08:26 Non-Formulary Medication (Otezla) 1 ea BID PO 10/20/21 21:00 10/21/21 08:26 Justifications for Admission Other Justification ANA URBAN III DO Oct 21, 2021 12:30
[2021-10-21] MEDS: oxyCODONE/APAP 5/325 1 TAB TABLET PO PRN (14:17)
[2021-10-21 15:00] VITALS: BP 136/62
[2021-10-21 19:00] VITALS: BP 133/58
[2021-10-21] MEDS: ENOXAPARIN 40 MG/0.4 ML SYRINGE. SQ SCH (21:22)
[2021-10-21] MEDS: KETOROLAC TROMETHAMINE 0.5% OPHTH SOLUTION 5ML BOTTLE. OU PRN (22:28)
[2021-10-21 23:05] VITALS: BP 129/60
[2021-10-22] MEDS: oxyCODONE/APAP 5/325 1 TAB TABLET PO PRN ×2 (00:42→17:22)
[2021-10-22] MEDS: ZOLPIDEM 5 MG TABLET. PO PRN (00:42)
[2021-10-22 03:20] VITALS: BP 146/79
[2021-10-22] MEDS: LEVOTHYROXINE 75 MCG TABLET PO SCH (05:31)
[2021-10-22 07:00] VITALS: BP 147/77
[2021-10-22] MEDS: GABAPENTIN 300 MG CAPSULE. PO SCH ×3 (08:39→21:41)
[2021-10-22] MEDS: FLUTICASONE 50MCG/NASAL SPRAY 16GM BOTTLE. NS SCH (08:39)
[2021-10-22] MEDS: PANTOPRAZOLE 40 MG TABLET.DR. PO SCH (08:39)
[2021-10-22] MEDS: DOCUSATE SODIUM 100 MG CAPSULE. PO SCH (08:39)
[2021-10-22] MEDS: EZETIMIBE 10 MG TABLET. PO SCH (08:39)
[2021-10-22] MEDS: OTEZLA PO SCH ×2 (08:39→21:42)
[2021-10-22] MEDS: CETIRIZINE HCL 10 MG TABLET. PO SCH (08:40)
[2021-10-22] MEDS: HYDROCORTISONE 1% TOPICAL CREAM 30GM TUBE. TP SCH ×2 (08:41→21:42)
--- NOTE | 2021-10-22 10:57 | PDOC ---
[facility] [facility] PROGRESS NOTE Date of Service DOS: DATE: 10/22/21 TIME: 10:53 Chief Complaint Chief Complaint Fall from 15 foot ladder with the following ankle fractures 1. Fractures of the lateral and medial tibial plateaus posteriorly with 8 mm and 3 mm of depression, respectively. 2. Segmental fibular shaft fracture with proximal and distal diaphyseal components. 3. Medial and posterior malleolar fractures. 4. Probable avulsion fracture of the anterolateral rim of the distal tibia. History of the following; Hypertension Hyperlipidemia Psoriasis Hypothyroidism History of Present Illness History of Present Illness 10/22/2021 Patient seen and examined Discussed with RN Discussed with case management Surgery team wants to wait until next Monday because there is so much tissue da mage, swelling around the fractures that it puts the patient at high risk for postoperative complications 10/21/2021 Patient seen and examined Discussed with RN Discussed with case management Discussed with Dr. White Per orthopedics , surgery is on hold until monday because there is so much tissue damage, swelling around the fractures that it puts the patient at high risk for postoperative complications unless we wait a few days, agree. 10/20/2021 Patient seen and examined Discussed with RN Chart reviewed Discussed with case management He is going to the OR later Vitals/I&O Vitals/I&O: Vital Signs Date Time Temp Pulse Resp B/P (MAP) Pulse Ox O2 Delivery O2 Flow Rate FiO2 10/22/21 08:40 78 147/77 10/22/21 07:00 97.4 20 94 Room Air 97.4 I & O 10/21/21 10/21/21 10/22/21 15:00 23:00 07:00 Intake Total 240 ml 120 ml Output Total 700 ml 500 ml Balance 240 ml -580 ml -500 ml Physical Exam General: Alert, Oriented X3 Heart: Regular rate Abdomen: Soft, No tenderness Extremities: Normal pulses Skin: No rashes, No breakdown Assessment and Plan Assessmemt and Plan Problems Medical Problems: (1) Closed left ankle fracture Status: Acute (2) Fracture of left proximal fibula Status: Acute (3) Tibial plateau fracture, left Status: Acute Fall from 15 foot ladder with the following ankle fractures 1. Fractures of the lateral and medial tibial plateaus posteriorly with 8 mm and 3 mm of depression, respectively. 2. Segmental fibular shaft fracture with proximal and distal diaphyseal compo nents. 3. Medial and posterior malleolar fractures. 4. Probable avulsion fracture of the anterolateral rim of the distal tibia. History of the following; Hypertension Hyperlipidemia Psoriasis Hypothyroidism Plan Still planned for surgery on Thursday 10/26 - surgery team wanted to wait until monday due to tissue damage and swelling around wound; for now continue the following; PT, OT Pain meds Home meds Trend labs DVT prophylaxis Full code Comment Review of Relevant I have reviewed the following items maria isabel (where applicable) has been applied. Justifications for Admission Other Justification ANA URBAN III DO Oct 22, 2021 10:57
[2021-10-22 11:00] VITALS: BP 123/69
[2021-10-22 15:00] VITALS: BP 136/62
--- NOTE | 2021-10-22 15:55 | NUR ---
SW following. Discussed with RN, ESTEFANI met with pt, pt agreeable to going to a facility after his surgery. Appeared to be in quite a bit of pain and not able to get comfortable. Pt requested ESTEFANI contact his [facility] (ph: [phone]). SW left voicemail for [facility]. ESTEFANI will continue to follow.
[2021-10-22 19:00] VITALS: BP 121/53
[2021-10-22] MEDS: ENOXAPARIN 40 MG/0.4 ML SYRINGE. SQ SCH (21:42)
[2021-10-22 23:05] VITALS: BP 147/65
[2021-10-23] MEDS: oxyCODONE/APAP 5/325 1 TAB TABLET PO PRN ×3 (02:29→17:35)
[2021-10-23 03:09] VITALS: BP 154/79
[2021-10-23] MEDS: LEVOTHYROXINE 75 MCG TABLET PO SCH (05:45)
[2021-10-23 07:00] VITALS: BP 150/80
[2021-10-23] MEDS: HYDROCORTISONE 1% TOPICAL CREAM 30GM TUBE. TP SCH ×2 (09:00→21:08)
[2021-10-23] MEDS: KETOROLAC TROMETHAMINE 0.5% OPHTH SOLUTION 5ML BOTTLE. OU PRN (09:24)
[2021-10-23] MEDS: FLUTICASONE 50MCG/NASAL SPRAY 16GM BOTTLE. NS SCH (09:24)
[2021-10-23] MEDS: OTEZLA PO SCH ×2 (09:24→21:08)
[2021-10-23] MEDS: DOCUSATE SODIUM 100 MG CAPSULE. PO SCH (09:25)
[2021-10-23] MEDS: EZETIMIBE 10 MG TABLET. PO SCH (09:25)
[2021-10-23] MEDS: CETIRIZINE HCL 10 MG TABLET. PO SCH (09:28)
[2021-10-23] MEDS: GABAPENTIN 300 MG CAPSULE. PO SCH ×3 (09:28→21:08)
[2021-10-23] MEDS: PANTOPRAZOLE 40 MG TABLET.DR. PO SCH (09:29)
[2021-10-23 11:00] VITALS: BP 138/72
--- NOTE | 2021-10-23 11:15 | PDOC ---
[facility] PROGRESS NOTE Date of Service DOS: DATE: 10/23/21 TIME: 11:15 Chief Complaint Chief Complaint Fall from 15 foot ladder with the following ankle fractures 1. Fractures of the lateral and medial tibial plateaus posteriorly with 8 mm and 3 mm of depression, respectively. 2. Segmental fibular shaft fracture with proximal and distal diaphyseal components. 3. Medial and posterior malleolar fractures. 4. Probable avulsion fracture of the anterolateral rim of the distal tibia. History of the following; Hypertension Hyperlipidemia Psoriasis Hypothyroidism History of Present Illness History of Present Illness 10/23/2021 Patient seen and examined Discussed with RN Chart reviewed Still awaiting surgery Monday10/22/2021 Patient seen and examined Discussed with RN Discussed with case management Surgery team wants to wait until monday because there is so much tissue damage, swelling around the fractures that it puts the patient at high risk for postoperative complications 10/21/2021 Patient seen and examined Discussed with RN Discussed with case management Discussed with Dr. White Per orthopedics , surgery is on hold until monday because there is so much tissue damage, swelling around the fractures that it puts the patient at high risk for postoperative complications unless we wait a few days, agree. 10/20/2021 Patient seen and examined Discussed with RN Chart reviewed Discussed with case management He is going to the OR later Vitals/I&O Vitals/I&O: Vital Signs Date Time Temp Pulse Resp B/P (MAP) Pulse Ox O2 Delivery O2 Flow Rate FiO2 10/23/21 09:28 74 150/80 10/23/21 07:00 98.3 18 95 Room Air 98.3 10/22/21 18:09 95.0 I & O 10/22/21 10/22/21 10/23/21 15:00 23:00 07:00 Intake Total 700 ml Output Total 1900 ml Balance -1200 ml Physical Exam General: Alert, Oriented X3 Heart: Regular rate Abdomen: Soft, No tenderness Extremities: Normal pulses Skin: No rashes, No breakdown Assessment and Plan Assessmemt and Plan Problems Medical Problems: (1) Closed left ankle fracture Status: Acute (2) Fracture of left proximal fibula Status: Acute (3) Tibial plateau fracture, left Status: Acute Fall from 15 foot ladder with the following ankle fractures 1. Fractures of the lateral and medial tibial plateaus posteriorly with 8 mm and 3 mm of depression, respectively. 2. Segmental fibular shaft fracture with proximal and distal diaphyseal components. 3. Medial and posterior malleolar fractures. 4. Probable avulsion fracture of the anterolateral rim of the distal tibia. History of the following; Hypertension Hyperlipidemia Psoriasis Hypothyroidism Plan Still planned for surgery on Thursday 10/26 - surgery team wanted to wait until monday due to tissue damage and swelling around wound; for now continue the following; PT, OT Pain meds Home meds Trend labs DVT prophylaxis Full code Comment Review of Relevant I have reviewed the following items maria isabel (where applicable) has been applied. Justifications for Admission Other Justification ANA URBAN III DO Oct 23, 2021 11:15
[2021-10-23 15:00] VITALS: BP 136/62
[2021-10-23 19:00] VITALS: BP 122/60
[2021-10-23] MEDS: ENOXAPARIN 40 MG/0.4 ML SYRINGE. SQ SCH (21:08)
[2021-10-23] MEDS: ZOLPIDEM 5 MG TABLET. PO PRN (23:38)
[2021-10-23 23:53] VITALS: BP 128/65
[2021-10-24 03:00] VITALS: BP 149/77
[2021-10-24] MEDS: oxyCODONE/APAP 5/325 1 TAB TABLET PO PRN ×2 (03:54→08:42)
[2021-10-24] MEDS: LEVOTHYROXINE 75 MCG TABLET PO SCH (06:24)
[2021-10-24 07:00] VITALS: BP 157/76
[2021-10-24] MEDS: EZETIMIBE 10 MG TABLET. PO SCH (08:41)
[2021-10-24] MEDS: CETIRIZINE HCL 10 MG TABLET. PO SCH (08:41)
[2021-10-24] MEDS: GABAPENTIN 300 MG CAPSULE. PO SCH ×3 (08:41→22:14)
[2021-10-24] MEDS: DOCUSATE SODIUM 100 MG CAPSULE. PO SCH (08:42)
[2021-10-24] MEDS: PANTOPRAZOLE 40 MG TABLET.DR. PO SCH (08:42)
[2021-10-24] MEDS: OTEZLA PO SCH ×2 (08:42→22:14)
[2021-10-24] MEDS: HYDROCORTISONE 1% TOPICAL CREAM 30GM TUBE. TP SCH ×2 (08:43→21:00)
[2021-10-24] MEDS: FLUTICASONE 50MCG/NASAL SPRAY 16GM BOTTLE. NS SCH (08:43)
[2021-10-24 11:00] VITALS: BP 128/68
--- NOTE | 2021-10-24 11:17 | PDOC ---
[facility] PROGRESS NOTE Date of Service DOS: DATE: 10/24/21 TIME: 11:15 Chief Complaint Chief Complaint Fall from 15 foot ladder with the following ankle fractures 1. Fractures of the lateral and medial tibial plateaus posteriorly with 8 mm and 3 mm of depression, respectively. 2. Segmental fibular shaft fracture with proximal and distal diaphyseal components. 3. Medial and posterior malleolar fractures. 4. Probable avulsion fracture of the anterolateral rim of the distal tibia. PMH: HTN Hyperlipidemia Psoriasis Hypothyroidism History of Present Illness History of Present Illness 10/24/2021 Patient seen and examined Discussed with RN Discussed with case management Chart reviewed Surgery still scheduled for upcoming Monday10/23/2021 Patient seen and examined Discussed with RN Chart reviewed Still awaiting surgery Monday10/22/2021 Patient seen and examined Discussed with RN Discussed with case management Surgery team wants to wait until next Monday because there is so much tissue damage, swelling around the fractures that it puts the patient at high risk for postoperative complications 10/21/2021 Patient seen and examined Discussed with RN Discussed with case management Discussed with Dr. White Per orthopedics , surgery is on hold until monday because there is so much tissue damage, swelling around the fractures that it puts the patient at high risk for postoperative complications unless we wait a few days, agree. 10/20/2021 Patient seen and examined Discussed with RN Chart reviewed Discussed with case management He is going to the OR later Vitals/I&O Vitals/I&O: Vital Signs Date Time Temp Pulse Resp B/P (MAP) Pulse Ox O2 Delivery O2 Flow Rate FiO2 10/24/21 08:42 Room Air 10/24/21 08:41 64 157/76 10/24/21 07:00 98.4 17 95 98.4 10/23/21 17:35 95.0 I & O 10/23/21 10/23/21 10/24/21 15:00 23:00 07:00 Intake Total 540 ml 400 ml Output Total 1400 ml 800 ml Balance -860 ml -400 ml Physical Exam General: Alert, Oriented X3 Heart: Regular rate Abdomen: Soft, No tenderness Extremities: Normal pulses Skin: No rashes, No breakdown Assessment and Plan Assessmemt and Plan Problems Medical Problems: (1) Closed left ankle fracture Status: Acute (2) Fracture of left proximal fibula Status: Acute (3) Tibial plateau fracture, left Status: Acute Fall from 15 foot ladder with the following ankle fractures 1. Fractures of the lateral and medial tibial plateaus posteriorly with 8 mm and 3 mm of depression, respectively. 2. Segmental fibular shaft fracture with proximal and distal diaphyseal components. 3. Medial and posterior malleolar fractures. 4. Probable avulsion fracture of the anterolateral rim of the distal tibia. PMH: HTN Hyperlipidemia Psoriasis Hypothyroidism Plan Surgery on Thursday 10/26 - surgery team wanted to wait until monday due to tissue damage and swelling around wound; for now continue the following; PT, OT Pain meds and home meds Trend labs DVT prophylaxis Full code Comment Review of Relevant I have reviewed the following items maria isabel (where applicable) has been applied. Justifications for Admission Other Justification ANA URBAN III DO Oct 24, 2021 11:17
[2021-10-24] MEDS: KETOROLAC TROMETHAMINE 0.5% OPHTH SOLUTION 5ML BOTTLE. OU PRN (14:24)
[2021-10-24 15:00] VITALS: BP 129/54
[2021-10-24 19:00] VITALS: BP 120/59
[2021-10-24] MEDS: ENOXAPARIN 40 MG/0.4 ML SYRINGE. SQ SCH (22:14)
[2021-10-24 23:00] VITALS: BP 104/68
[2021-10-25] MEDS: oxyCODONE/APAP 5/325 1 TAB TABLET PO PRN ×3 (00:34→23:12)
[2021-10-25] MEDS: LEVOTHYROXINE 75 MCG TABLET PO SCH (05:17)
[2021-10-25 07:00] VITALS: BP 131/74
--- NOTE | 2021-10-25 10:28 | PDOC ---
[facility] PROGRESS NOTE Date of Service DOS: DATE: 10/25/21 TIME: 10:27 Chief Complaint Chief Complaint Fall from 15 foot ladder with the following ankle fractures 1. Fractures of the lateral and medial tibial plateaus posteriorly with 8 mm and 3 mm of depression, respectively. 2. Segmental fibular shaft fracture with proximal and distal diaphyseal components. 3. Medial and posterior malleolar fractures. 4. Probable avulsion fracture of the anterolateral rim of the distal tibia. PMH: HTN Hyperlipidemia Psoriasis Hypothyroidism History of Present Illness History of Present Illness 10/25/2021 Patient seen and examined Discussed with RN Discussed with case management Chart reviewed Surgery tomorrow 10/2610/24/2021 Patient seen and examined Discussed with RN Discussed with case management Chart reviewed Surgery still scheduled for upcoming Monday10/23/2021 Patient seen and examined Discussed with RN Chart reviewed Still awaiting surgery Monday10/22/2021 Patient seen and examined Discussed with RN Discussed with case management Surgery team wants to wait until next Monday because there is so much tissue damage, swelling around the fractures that it puts the patient at high risk for postoperative complications 10/21/2021 Patient seen and examined Discussed with RN Discussed with case management Discussed with Dr. White Per orthopedics , surgery is on hold until next Monday because there is so much tissue damage, swelling around the fractures that it puts the patient at high risk for postoperative complications unless we wait a few days, agree. 10/20/2021 Patient seen and examined Discussed with RN Chart reviewed Discussed with case management He is going to the OR later Vitals/I&O Vitals/I&O: Vital Signs Date Time Temp Pulse Resp B/P (MAP) Pulse Ox O2 Delivery O2 Flow Rate FiO2 10/25/21 07:00 98.1 72 131/74 (93) 95 Room Air 98.1 10/25/21 01:04 18 I & O 10/24/21 10/24/21 10/25/21 15:00 23:00 07:00 Intake Total 300 ml 150 ml Output Total 400 ml Balance 300 ml -250 ml Physical Exam General: Alert, Oriented X3 Heart: Regular rate Abdomen: Soft, No tenderness Extremities: Normal pulses Skin: No rashes, No breakdown Assessment and Plan Assessmemt and Plan Problems Medical Problems: (1) Closed left ankle fracture Status: Acute (2) Fracture of left proximal fibula Status: Acute (3) Tibial plateau fracture, left Status: Acute Fall from 15 foot ladder with the following ankle fractures 1. Fractures of the lateral and medial tibial plateaus posteriorly with 8 mm and 3 mm of depression, respectively. 2. Segmental fibular shaft fracture with proximal and distal diaphyseal components. 3. Medial and posterior malleolar fractures. 4. Probable avulsion fracture of the anterolateral rim of the distal tibia. PMH: HTN Hyperlipidemia Psoriasis Hypothyroidism Plan Surgery tomorrow 10/26 - surgery team wanted to wait until monday due to tissue damage and swelling around wound; for now continue the following; PT, OT Pain meds and home meds Trend labs DVT prophylaxis Full code Comment Review of Relevant I have reviewed the following items maria isabel (where applicable) has been applied. Justifications for Admission Other Justification ANA URBAN III DO Oct 25, 2021 10:28
[2021-10-25] MEDS: OTEZLA PO SCH ×2 (10:53→20:35)
[2021-10-25] MEDS: FLUTICASONE 50MCG/NASAL SPRAY 16GM BOTTLE. NS SCH (10:54)
[2021-10-25] MEDS: HYDROCORTISONE 1% TOPICAL CREAM 30GM TUBE. TP SCH ×2 (10:54→20:37)
[2021-10-25] MEDS: CETIRIZINE HCL 10 MG TABLET. PO SCH (10:54)
[2021-10-25] MEDS: PANTOPRAZOLE 40 MG TABLET.DR. PO SCH (10:54)
[2021-10-25] MEDS: EZETIMIBE 10 MG TABLET. PO SCH (10:54)
[2021-10-25] MEDS: DOCUSATE SODIUM 100 MG CAPSULE. PO SCH ×2 (10:54→10:58)
[2021-10-25] MEDS: GABAPENTIN 300 MG CAPSULE. PO SCH ×3 (10:55→20:36)
[2021-10-25 11:00] VITALS: BP 128/58
--- NOTE | 2021-10-25 13:09 | NUR ---
SW following. Discussed with RN, pt from home with , room air, regular diet, COVID-19 negative. Pt having surgery tomorrow. SW playing phone tag with pt's , left voicemail requesting return call to discuss discharge planning after pt's surgery. SW will continue to follow.
[2021-10-25 15:00] VITALS: BP 115/63
[2021-10-25 19:00] VITALS: BP 115/58
[2021-10-25] MEDS: ZOLPIDEM 5 MG TABLET. PO PRN (23:12)
[2021-10-26] MEDS ORDERED: fentaNYL PF VIAL 100 MCG/2 ML VIAL IVP PRN (06:00)
[2021-10-26] MEDS ORDERED: IV RINGERS,LACTATED 1000ML 1,000 ML IV SCH (06:00)
[2021-10-26] MEDS ORDERED: PROCHLORPERAZINE 10 MG/2 ML VIAL. IVP PRN (06:00)
[2021-10-26] MEDS: LEVOTHYROXINE 75 MCG TABLET PO SCH (06:26)
[2021-10-26 07:00] VITALS: BP 142/71
[2021-10-26] MEDS: PANTOPRAZOLE 40 MG TABLET.DR. PO SCH (07:30)
[2021-10-26] MEDS ORDERED: DEXAMETHASONE SOD PHOS 4 MG/ML VIAL ONE (08:48)
[2021-10-26] MEDS ORDERED: PROPOFOL 10 MG/ML (20ML) VIAL. IV ONE (08:48)
[2021-10-26] MEDS ORDERED: ONDANSETRON PF 4 MG/2 ML VIAL. ONE (08:49)
[2021-10-26] MEDS: HYDROCORTISONE 1% TOPICAL CREAM 30GM TUBE. TP SCH ×2 (09:00→21:26)
[2021-10-26] MEDS: GABAPENTIN 300 MG CAPSULE. PO SCH ×3 (09:00→21:26)
[2021-10-26] MEDS: CETIRIZINE HCL 10 MG TABLET. PO SCH (09:00)
[2021-10-26] MEDS: OTEZLA PO SCH ×2 (09:00→21:27)
[2021-10-26] MEDS: FLUTICASONE 50MCG/NASAL SPRAY 16GM BOTTLE. NS SCH (09:00)
[2021-10-26] MEDS: EZETIMIBE 10 MG TABLET. PO SCH (09:00)
--- NOTE | 2021-10-26 10:04 | PDOC ---
[facility] PROGRESS NOTE Date of Service DOS: DATE: 10/26/21 TIME: 10:03 Chief Complaint Chief Complaint Fall from 15 foot ladder with the following ankle fractures 1. Fractures of the lateral and medial tibial plateaus posteriorly with 8 mm and 3 mm of depression, respectively. 2. Segmental fibular shaft fracture with proximal and distal diaphyseal components. 3. Medial and posterior malleolar fractures. 4. Probable avulsion fracture of the anterolateral rim of the distal tibia. PMH: HTN Hyperlipidemia Psoriasis Hypothyroidism History of Present Illness History of Present Illness 10/26/2021 Patient seen and examined Discussed with RN Discussed with case management Chart reviewed Surgery scheduled for today at 11:15 am 10/25/2021 Patient seen and examined Discussed with RN Discussed with case management Chart reviewed Surgery tomorrow 10/2610/24/2021 Patient seen and examined Discussed with RN Discussed with case management Chart reviewed Surgery still scheduled for upcoming Monday10/23/2021 Patient seen and examined Discussed with RN Chart reviewed Still awaiting surgery Monday10/22/2021 Patient seen and examined Discussed with RN Discussed with case management Surgery team wants to wait until next Monday because there is so much tissue damage, swelling around the fractures that it puts the patient at high risk for postoperative complications 10/21/2021 Patient seen and examined Discussed with RN Discussed with case management Discussed with Dr. White Per orthopedics , surgery is on hold until monday because there is so much tissue damage, swelling around the fractures that it puts the patient at high risk for postoperative complications unless we wait a few days, agree. 10/20/2021 Patient seen and examined Discussed with RN Chart reviewed Discussed with case management He is going to the OR later Vitals/I&O Vitals/I&O: Vital Signs Date Time Temp Pulse Resp B/P (MAP) Pulse Ox O2 Delivery O2 Flow Rate FiO2 10/26/21 07:00 99.0 79 18 142/71 (94) 93 Room Air 99.0 10/25/21 20:00 95.0 I & O 10/25/21 10/25/21 10/26/21 15:00 23:00 07:00 Intake Total 0 ml Balance 0 ml Physical Exam General: Alert, Oriented X3 Heart: Regular rate Abdomen: Soft, No tenderness Extremities: Normal pulses Skin: No rashes, No breakdown Labs Labs: Laboratory Tests Test 10/25/21 17:15 SARS-CoV-2 RNA (NASIR) Negative (Negative) Assessment and Plan Assessmemt and Plan Problems Medical Problems: (1) Closed left ankle fracture Status: Acute (2) Fracture of left proximal fibula Status: Acute (3) Tibial plateau fracture, left Status: Acute Fall from 15 foot ladder with the following ankle fractures 1. Fractures of the lateral and medial tibial plateaus posteriorly with 8 mm and 3 mm of depression, respectively. 2. Segmental fibular shaft fracture with proximal and distal diaphyseal components. 3. Medial and posterior malleolar fractures. 4. Probable avulsion fracture of the anterolateral rim of the distal tibia. PMH: HTN Hyperlipidemia Psoriasis Hypothyroidism Plan Going to surgery today at 11:15 am; for now continue the following; PT, OT Pain meds and home meds Trend labs DVT prophylaxis Full code Comment Review of Relevant I have reviewed the following items maria isabel (where applicable) has been applied. Justifications for Admission Other Justification ANA URBAN III DO Oct 26, 2021 10:04
[2021-10-26] MEDS ORDERED: ROPIVacaine 0.5% PF 20 ML VIAL. ONE (11:41)
[2021-10-26] MEDS ORDERED: MIDAZOLAM HCL/PF 2 MG/2 ML VIAL. ONE (11:44)
[2021-10-26] MEDS ORDERED: BUPIVACAINE-EPI 0.5% 30 ML VIAL KIT. ONE (11:51)
--- NOTE | 2021-10-26 12:08 | PDOC4 ---
Operative Note Operative Note Date of procedure: 10/26/2021 Surgeon: Mian Flores Picture Framer: Huseyin Ricks, certified wellness program coordinator, necessary to help position the patient, hold retraction, facilitate the reduction and assisted with wound closure and application of splint Preoperative diagnosis: Closed displaced trimalleolar left ankle fracture Postoperative diagnosis: Same Procedure performed open reduction internal fixation of trimalleolar left ankle fracture Anesthesia: General plus regional nerve block Tourniquet time: Less than 60 minutes Blood loss: 10 mL Findings: Acute fractures at distal fibular shaft and medial malleolus Components inserted: 6 hole one third tubular nonlocking plate for distal fi bula, two 4.0 mm cannulated screws medially Reason for procedure: Patient is a very pleasant 71-year-old who fell several feet from a ladder while taking down his [place] lights. He had a reduction performed in the emergency department, and after allowing soft tissues to appropriately recover, we had a discussion of the risks, benefits, and alternatives to surgery and he elected to proceed. I inspected the soft tissues prior to surgery. Description of procedure: Patient was greeted in the preoperative area by myself, I took down part of the splint, he had return of skin wrinkles. The correct extremity was verified and marked. He was taken the operative suite after placement of a block by the anesthesiology team. He has Ancef was started as he was brought back. Once in the operating, he was transferred I supine the operating table and secured to the bed with all pressure points padded and had a pad under his left hip, all down pressure points were padded. He had successful induction of a general anesthetic. Nonsterile tourniquet was taped in place to his left upper thigh. We then performed a chlorhexidine prescrub of his left lower extremity followed by our regular prepping and draping. We then conducted our standard preoperative timeout. I then palpated marked surface anatomy and yoshi lines for my standard lateral exposure to the distal fibula and curvilinear incision for his medial malleolus. Extremity was exsanguinated with an Esmarch and tourniquet insufflated to 250 mmHg. I incised skin after using fluoroscopy to localize his fibular fracture. I dissected subcutaneous tissue with electrocautery and incised fascia line with the skin incision and placed my self-retaining retractor. I identified his fibular fracture and used a periosteal elevator to expose the bone in anticipation of plate application. I then used a [id number] reduction clamp to reduce the fracture. I then brought in C arm and selected my plate, confirming appropriate position with biplanar fluoroscopy. I then placed 2 nonlocking screws proximal and distal to the fracture site and I filled the remainder of the holes after this. I then directed my attention to the medial malleolar fracture site and incised skin in accordance with my line. I dissected subcutaneous tissue with electrocautery and identified the fracture site. I used a scalpel and small rongeur to debride the fracture site and remove some overlying interposed periosteum. I used a dental pick to distract the medial malleolus fracture site and thoroughly irr igated the ankle joint. I noted that his posterior malleolus piece, which was small, was in good position. I did not feel that you need any fixation. I then placed my guidepin, using biplanar fluoroscopy to guide me, to secure his medial malleolus into position. I then placed a second 1 parallel to this. I used fluoroscopy to help ensure I was in good position. After confirming position, I drilled and placed my 2 screws while an contact center assistant held the fracture reduced with a dental pick. I then took my final images including an external rotation stress image which was negative. I then thoroughly irrigated the incisions out and closed fascia laterally with simple interrupted 0 Vicryl. Inverted interrupted 2-0 Vicryl for subcutaneous tissue was used medially and laterally, 3-0 nylon in a mattress fashion was used medially and laterally as well. Prior to wound closure, all counts correct x2. No complications. Surgery was well- tolerated by the patient. At the inclusion the foot and ankle were cleansed and dried and an AO splint was applied. He was then placed in a hinged knee brace as well. He was then awakened anesthesia transferred gently supine to the hospital bed and taken to PACU in stable and extubated condition. Postoperative plan is for him to be readmitted to the floor under the care of the hospitalist. I will follow along. He will be nonweightbearing. MIAN FLORES II, MD Oct 26, 2021 12:08
[2021-10-26] MEDS ORDERED: fentaNYL PF VIAL 100 MCG/2 ML VIAL ONE ×2 (12:26→13:41)
[2021-10-26] MEDS ORDERED: MORPHINE SULFATE 2 MG/ML INJ. ONE (13:49)
[2021-10-26] MEDS: fentaNYL PF VIAL 100 MCG/2 ML VIAL IVP PRN ×3 (13:54→14:54)
[2021-10-26] MEDS: MORPHINE SULFATE 2 MG/ML INJ. IVP PRN ×2 (13:55→14:05)
[2021-10-26] MEDS ORDERED: ceFAZolin SODIUM IV Push 1 GM VIAL. IVP SCH (14:00)
[2021-10-26] MEDS ORDERED: HYDROmorphone 2 MG/ML INJ. ONE (14:01)
[2021-10-26] MEDS: HYDROmorphone 2 MG/ML INJ. IVP PRN ×2 (14:06→14:18)
[2021-10-26 15:00] VITALS: BP 158/83
[2021-10-26 19:00] VITALS: BP 127/76
[2021-10-26] MEDS ORDERED: GABA600T7 PO (21:48)
[2021-10-26] MEDS ORDERED: GABAPENTIN 300 MG CAPSULE. PO ONE (22:15)
[2021-10-26 23:00] VITALS: BP 121/67
[2021-10-26] MEDS: oxyCODONE/APAP 5/325 1 TAB TABLET PO PRN (23:15)
[2021-10-27] MEDS: fentaNYL PF VIAL 100 MCG/2 ML VIAL IVP PRN ×3 (00:47→21:20)
[2021-10-27] MEDS: oxyCODONE/APAP 5/325 1 TAB TABLET PO PRN ×3 (04:00→19:46)
[2021-10-27] MEDS: PANTOPRAZOLE 40 MG TABLET.DR. PO SCH (06:29)
[2021-10-27] MEDS: GABAPENTIN 300 MG CAPSULE. PO SCH ×3 (06:29→21:17)
[2021-10-27] MEDS: LEVOTHYROXINE 75 MCG TABLET PO SCH (06:29)
[2021-10-27 07:00] VITALS: BP 144/72
--- NOTE | 2021-10-27 08:03 | PDOC ---
[facility] PROGRESS NOTE Date of Service DOS: DATE: 10/27/21 TIME: 07:58 Chief Complaint Chief Complaint Fall from 15 foot ladder with the following ankle fractures 1. Fractures of the lateral and medial tibial plateaus posteriorly with 8 mm and 3 mm of depression, respectively. 2. Segmental fibular shaft fracture with proximal and distal diaphyseal components. 3. Medial and posterior malleolar fractures. 4. Probable avulsion fracture of the anterolateral rim of the distal tibia. PMH: HTN Hyperlipidemia Psoriasis Hypothyroidism History of Present Illness History of Present Illness 10/27/2021 Patient seen and examined Discussed with RN Discussed with case management Chart reviewed POD#1; per surgery team, patient is non-weight bearing Patient in no acute distress 10/26/2021 Patient seen and examined Discussed with RN Discussed with case management Chart reviewed Surgery scheduled for today at 11:15 am 10/25/2021 Patient seen and examined Discussed with RN Discussed with case management Chart reviewed Surgery tomorrow 10/2610/24/2021 Patient seen and examined Discussed with RN Discussed with case management Chart reviewed Surgery still scheduled for upcoming Monday10/23/2021 Patient seen and examined Discussed with RN Chart reviewed Still awaiting surgery Monday10/22/2021 Patient seen and examined Discussed with RN Discussed with case management Surgery team wants to wait until next Monday because there is so much tissue damage, swelling around the fractures that it puts the patient at high risk for postoperative complications 10/21/2021 Patient seen and examined Discussed with RN Discussed with case management Discussed with Dr. White Per orthopedics , surgery is on hold until next Monday because there is so much tissue damage, swelling around the fractures that it puts the patient at high risk for postoperative complications unless we wait a few days, agree. 10/20/2021 Patient seen and examined Discussed with RN Chart reviewed Discussed with case management He is going to the OR later Vitals/I&O Vitals/I&O: Vital Signs Date Time Temp Pulse Resp B/P (MAP) Pulse Ox O2 Delivery O2 Flow Rate FiO2 10/27/21 04:30 18 95 Room Air 10/26/21 23:00 98.5 78 121/67 (85) 98.5 10/26/21 14:54 2.0 I & O 10/26/21 10/26/21 10/27/21 15:00 23:00 07:00 Intake Total 100 ml Output Total 400 ml Balance -400 ml 100 ml Physical Exam General: Alert, Oriented X3 Heart: Regular rate Abdomen: Soft, No tenderness Extremities: Normal pulses Skin: No rashes, No breakdown Labs Labs: Laboratory Tests Test 10/26/21 10:55 SARS-CoV-2 Antigen (Rapid) Negative (NEGATIVE) Assessment and Plan Assessmemt and Plan Problems Medical Problems: (1) Closed left ankle fracture Status: Acute (2) Fracture of left proximal fibula Status: Acute (3) Tibial plateau fracture, left Status: Acute Fall from 15 foot ladder with the following ankle fractures 1. Fractures of the lateral and medial tibial plateaus posteriorly with 8 mm and 3 mm of depression, respectively. 2. Segmental fibular shaft fracture with proximal and distal diaphyseal components. 3. Medial and posterior malleolar fractures. 4. Probable avulsion fracture of the anterolateral rim of the distal tibia. PMH: HTN Hyperlipidemia Psoriasis Hypothyroidism Plan POD#1; per surgery team, patient is non-weight bearing but did well in surgery PT, OT will come today Pain meds and home meds prn Wound care Trend labs DVT prophylaxis Full code Probable D/C to SNU in the next couple of days Comment Review of Relevant I have reviewed the following items maria isabel (where applicable) has been applied. Medications: Current Medications Medications (Trade) Dose Ordered Sig/Mauricio Route PRN Reason Start Time Stop Time Status Last Admin Dose Admin Bupivacaine HCl/ Epinephrine Bitart (Sensorcain-Epi 0.5% Kit) 30 ml STK-MED ONCE .ROUTE 10/26/21 11:51 10/26/21 11:52 DC 10/26/21 13:03 Cefazolin Sodium/ Dextrose 50 ml @ 100 mls/hr 1X ONCE IV 10/26/21 12:00 10/26/21 12:29 DC 10/26/21 12:12 Cefazolin Sodium/ Dextrose 50 ml @ 100 mls/hr Q8H IV 10/26/21 20:00 10/27/21 12:29 10/27/21 03:56 Gabapentin (Neurontin) 300 mg BID@0700,1400 PO 10/27/21 07:00 10/27/21 06:29 Gabapentin (Neurontin) 300 mg 1X ONCE PO 10/26/21 22:15 10/26/21 22:16 DC 10/26/21 22:06 Fentanyl Citrate (Fentanyl 2ml Vial) 25 mcg PRN Q3HRS PRN IVP PAIN 10/27/21 00:45 10/27/21 00:47 Justifications for Admission Other Justification ANA URBAN III DO Oct 27, 2021 08:03
[2021-10-27] MEDS: FLUTICASONE 50MCG/NASAL SPRAY 16GM BOTTLE. NS SCH (08:36)
[2021-10-27] MEDS: OTEZLA PO SCH ×2 (08:37→21:18)
[2021-10-27] MEDS: DOCUSATE SODIUM 100 MG CAPSULE. PO SCH (08:38)
[2021-10-27] MEDS: EZETIMIBE 10 MG TABLET. PO SCH (08:38)
[2021-10-27] MEDS: CETIRIZINE HCL 10 MG TABLET. PO SCH (08:39)
[2021-10-27] MEDS: HYDROCORTISONE 1% TOPICAL CREAM 30GM TUBE. TP SCH ×3 (09:00→21:53)
[2021-10-27 11:00] VITALS: BP 131/58
[2021-10-27 15:00] VITALS: BP 140/62
--- NOTE | 2021-10-27 16:15 | NUR ---
ESTEFANI following. Discussed with RN, pt had surgery on 10/26 - needs new therapy orders with weight bearing status. SW had voicemail from pt's stating pt is in incredible amounts of pain and cannot reach his call light. ESTEFANI spoke with pt's , she doesn't really have a preference of facility and would be okay with [facility]. SW to speak with [facility] tomorrow. ESTEFANI will continue to follow.
[2021-10-27 19:00] VITALS: BP 136/70
[2021-10-27] MEDS ORDERED: NON FORMULARY ITEM (Gabapentin 600 MG) PO SCH (21:00)
[2021-10-27] MEDS: ZOLPIDEM 5 MG TABLET. PO PRN ×2 (23:23)
[2021-10-27 23:29] VITALS: BP 148/72
[2021-10-28] MEDS: oxyCODONE/APAP 5/325 1 TAB TABLET PO PRN ×2 (00:12→07:36)
[2021-10-28 03:16] VITALS: BP 149/86
[2021-10-28] MEDS: GABAPENTIN 300 MG CAPSULE. PO SCH ×3 (06:11→20:23)
[2021-10-28] MEDS: LEVOTHYROXINE 75 MCG TABLET PO SCH (06:12)
[2021-10-28] MEDS: PANTOPRAZOLE 40 MG TABLET.DR. PO SCH (06:12)
[2021-10-28 07:00] VITALS: BP 148/70
[2021-10-28] MEDS: HYDROCORTISONE 1% TOPICAL CREAM 30GM TUBE. TP SCH ×2 (09:00→20:20)
[2021-10-28] MEDS: OTEZLA PO SCH ×2 (09:11→20:24)
[2021-10-28] MEDS: CETIRIZINE HCL 10 MG TABLET. PO SCH (09:13)
[2021-10-28] MEDS: EZETIMIBE 10 MG TABLET. PO SCH (09:13)
[2021-10-28] MEDS: FLUTICASONE 50MCG/NASAL SPRAY 16GM BOTTLE. NS SCH (09:13)
[2021-10-28] MEDS: DOCUSATE SODIUM 100 MG CAPSULE. PO SCH (09:13)
--- NOTE | 2021-10-28 10:32 | PDOC ---
[facility] [facility] PROGRESS NOTE Date of Service DOS: DATE: 10/28/21 TIME: 10:27 Chief Complaint Chief Complaint Fall from 15 foot ladder with the following ankle fractures 1. Fractures of the lateral and medial tibial plateaus posteriorly with 8 mm and 3 mm of depression, respectively. 2. Segmental fibular shaft fracture with proximal and distal diaphyseal components. 3. Medial and posterior malleolar fractures. 4. Probable avulsion fracture of the anterolateral rim of the distal tibia. PMH: HTN Hyperlipidemia Psoriasis Hypothyroidism History of Present Illness History of Present Illness 10/28/2021 Patient seen and examined Patient in NAD, relaxed and cooperative Discussed complaints of pain but says medications help POD#2: Once surgery approves weight bearing status will begin PT/OT and discuss dispo Discussed with RN Discussed with case management Chart reviewed 10/27/2021 Patient seen and examined Discussed with RN Discussed with case management Chart reviewed POD#1; per surgery team, patient is non-weight bearing Patient in no acute distress 10/26/2021 Patient seen and examined Discussed with RN Discussed with case management Chart reviewed Surgery scheduled for today at 11:15 am 10/25/2021 Patient seen and examined Discussed with RN Discussed with case management Chart reviewed Surgery tomorrow 10/2610/24/2021 Patient seen and examined Discussed with RN Discussed with case management Chart reviewed Surgery still scheduled for upcoming Monday10/23/2021 Patient seen and examined Discussed with RN Chart reviewed Still awaiting surgery Monday10/22/2021 Patient seen and examined Discussed with RN Discussed with case management Surgery team wants to wait until next Monday because there is so much tissue damage, swelling around the fractures that it puts the patient at high risk for postoperative complications 10/21/2021 Patient seen and examined Discussed with RN Discussed with case management Discussed with Dr. White Per orthopedics , surgery is on hold until next Monday because there is so much tissue damage, swelling around the fractures that it puts the patient at high risk for postoperative complications unless we wait a few days, agree. 10/20/2021 Patient seen and examined Discussed with RN Chart reviewed Discussed with case management He is going to the OR later Vitals/I&O Vitals/I&O: Vital Signs Date Time Temp Pulse Resp B/P (MAP) Pulse Ox O2 Delivery O2 Flow Rate FiO2 10/28/21 09:14 73 148/70 10/28/21 07:42 Room Air 10/28/21 07:00 98.3 20 96 98.3 10/27/21 21:50 2.0 I & O 10/27/21 10/27/21 10/28/21 15:00 23:00 07:00 Output Total 800 ml Balance -800 ml Physical Exam General: Alert, Oriented X3 Heart: Regular rate Abdomen: Soft, No tenderness Extremities: Normal pulses Skin: No rashes, No breakdown Assessment and Plan Assessmemt and Plan Problems Medical Problems: (1) Closed left ankle fracture Status: Acute (2) Fracture of left proximal fibula Status: Acute (3) Tibial plateau fracture, left Status: Acute Fall from 15 foot ladder with the following ankle fractures 1. Fractures of the lateral and medial tibial plateaus posteriorly with 8 mm and 3 mm of depression, respectively. 2. Segmental fibular shaft fracture with proximal and distal diaphyseal components. 3. Medial and posterior malleolar fractures. 4. Probable avulsion fracture of the anterolateral rim of the distal tibia. PMH: HTN Hyperlipidemia Psoriasis Hypothyroidism Plan POD#2; cont wound care, once weight bearing status is approved will further discuss dispo PT, OT will come today Pain meds and home meds prn Wound care Trend labs DVT prophylaxis Full code D/c dispo pending Comment Review of Relevant I have reviewed the following items maria isabel (where applicable) has been applied. Medications: Current Medications Medications (Trade) Dose Ordered Sig/Mauricio Route PRN Reason Start Time Stop Time Status Last Admin Dose Admin Gabapentin (Neurontin) 600 mg HS PO 10/27/21 21:00 10/27/21 21:17 Justifications for Admission Other Justification ANA URBAN III DO Oct 28, 2021 10:32
[2021-10-28 11:00] VITALS: BP 125/68
[2021-10-28 15:00] VITALS: BP 147/75
[2021-10-28 19:00] VITALS: BP 132/75
[2021-10-28] MEDS: ENOXAPARIN 40 MG/0.4 ML SYRINGE. SQ SCH (20:24)
[2021-10-28 23:54] VITALS: BP 132/70
[2021-10-29] MEDS: oxyCODONE/APAP 5/325 1 TAB TABLET PO PRN ×2 (00:55→15:46)
[2021-10-29 03:30] VITALS: BP 147/77
[2021-10-29] MEDS: PANTOPRAZOLE 40 MG TABLET.DR. PO SCH (06:20)
[2021-10-29] MEDS: GABAPENTIN 300 MG CAPSULE. PO SCH ×3 (06:20→21:15)
[2021-10-29] MEDS: LEVOTHYROXINE 75 MCG TABLET PO SCH (06:20)
[2021-10-29 07:00] VITALS: BP 147/75
[2021-10-29] MEDS: HYDROCORTISONE 1% TOPICAL CREAM 30GM TUBE. TP SCH ×2 (08:45→21:00)
[2021-10-29] MEDS: CETIRIZINE HCL 10 MG TABLET. PO SCH (08:54)
[2021-10-29] MEDS: DOCUSATE SODIUM 100 MG CAPSULE. PO SCH (08:54)
[2021-10-29] MEDS: EZETIMIBE 10 MG TABLET. PO SCH (08:55)
[2021-10-29] MEDS: FLUTICASONE 50MCG/NASAL SPRAY 16GM BOTTLE. NS SCH (08:55)
[2021-10-29] MEDS: OTEZLA PO SCH ×2 (08:55→21:14)
--- NOTE | 2021-10-29 10:26 | PDOC ---
[facility] PROGRESS NOTE Date of Service DOS: DATE: 10/29/21 TIME: 10:24 Chief Complaint Chief Complaint Fall from 15 foot ladder with the following ankle fractures 1. Fractures of the lateral and medial tibial plateaus posteriorly with 8 mm and 3 mm of depression, respectively. 2. Segmental fibular shaft fracture with proximal and distal diaphyseal components. 3. Medial and posterior malleolar fractures. 4. Probable avulsion fracture of the anterolateral rim of the distal tibia. PMH: HTN Hyperlipidemia Psoriasis Hypothyroidism History of Present Illness History of Present Illness 10/29/2021 Patient seen and examined Patient in NAD POD#3: ordered PT/OT and discuss dispo Discussed with RN Discussed with case management Chart reviewed 10/28/2021 Patient seen and examined Patient in NAD, relaxed and cooperative Discussed complaints of pain but says medications help POD#2: Once surgery approves weight bearing status will begin PT/OT and discuss dispo Discussed with RN Discussed with case management Chart reviewed 10/27/2021 Patient seen and examined Discussed with RN Discussed with case management Chart reviewed POD#1; per surgery team, patient is non-weight bearing Patient in no acute distress 10/26/2021 Patient seen and examined Discussed with RN Discussed with case management Chart reviewed Surgery scheduled for today at 11:15 am 10/25/2021 Patient seen and examined Discussed with RN Discussed with case management Chart reviewed Surgery tomorrow 10/2610/24/2021 Patient seen and examined Discussed with RN Discussed with case management Chart reviewed Surgery still scheduled for upcoming Monday10/23/2021 Patient seen and examined Discussed with RN Chart reviewed Still awaiting surgery Monday10/22/2021 Patient seen and examined Discussed with RN Discussed with case management Surgery team wants to wait until next Monday because there is so much tissue damage, swelling around the fractures that it puts the patient at high risk for postoperative complications 10/21/2021 Patient seen and examined Discussed with RN Discussed with case management Discussed with Dr. White Per orthopedics , surgery is on hold until next Monday because there is so much tissue damage, swelling around the fractures that it puts the patient at high risk for postoperative complications unless we wait a few days, agree. 10/20/2021 Patient seen and examined Discussed with RN Chart reviewed Discussed with case management He is going to the OR later Vitals/I&O Vitals/I&O: Vital Signs Date Time Temp Pulse Resp B/P (MAP) Pulse Ox O2 Delivery O2 Flow Rate FiO2 10/29/21 08:54 72 147/75 10/29/21 07:20 Room Air 10/29/21 07:00 98.0 20 96 98.0 I & O 10/28/21 10/28/21 10/29/21 15:00 23:00 07:00 Intake Total 120 ml Output Total 1900 ml 950 ml Balance -1780 ml -950 ml Physical Exam General: Alert, Oriented X3 Heart: Regular rate Abdomen: Soft, No tenderness Extremities: Normal pulses Skin: No rashes, No breakdown Assessment and Plan Assessmemt and Plan Problems Medical Problems: (1) Closed left ankle fracture Status: Acute (2) Fracture of left proximal fibula Status: Acute (3) Tibial plateau fracture, left Status: Acute Fall from 15 foot ladder with the following ankle fractures 1. Fractures of the lateral and medial tibial plateaus posteriorly with 8 mm and 3 mm of depression, respectively. 2. Segmental fibular shaft fracture with proximal and distal diaphyseal components. 3. Medial and posterior malleolar fractures. 4. Probable avulsion fracture of the anterolateral rim of the distal tibia. HTN Hyperlipidemia Psoriasis Hypothyroidism Plan POD#3; cont wound care, once weight bearing status is approved will further discuss discharge disposition PT, OT ordered Pain meds and home meds prn Wound care Trend labs DVT prophylaxis Full code D/c dispo pending but probably will go to senior care soon Comment Review of Relevant I have reviewed the following items maria isabel (where applicable) has been applied. Medications: Current Medications Medications (Trade) Dose Ordered Sig/Mauricio Route PRN Reason Start Time Stop Time Status Last Admin Dose Admin Enoxaparin Sodium (Lovenox 40mg Syringe) 40 mg Q24H SQ 10/28/21 21:00 10/28/21 20:24 Justifications for Admission Other Justification ANA URBAN III DO Oct 29, 2021 10:26
[2021-10-29 11:00] VITALS: BP 108/64
--- NOTE | 2021-10-29 12:00 | NUR ---
SW following. Discussed with RN, therapy finally received the weight bearing status after surgery. SW awaiting PT note. Likely discharge early next week after referral and insurance approval. SW will continue to follow.
[2021-10-29 15:00] VITALS: BP 130/73
[2021-10-29 19:00] VITALS: BP 120/71
[2021-10-29] MEDS: ENOXAPARIN 40 MG/0.4 ML SYRINGE. SQ SCH (21:15)
[2021-10-29 23:00] VITALS: BP 135/72
[2021-10-30] MEDS: oxyCODONE/APAP 5/325 1 TAB TABLET PO PRN ×2 (01:46→20:50)
[2021-10-30] MEDS: PANTOPRAZOLE 40 MG TABLET.DR. PO SCH (06:39)
[2021-10-30] MEDS: GABAPENTIN 300 MG CAPSULE. PO SCH ×3 (06:39→20:49)
[2021-10-30] MEDS: LEVOTHYROXINE 75 MCG TABLET PO SCH (06:39)
[2021-10-30 07:00] VITALS: BP 97/55
[2021-10-30] MEDS: DOCUSATE SODIUM 100 MG CAPSULE. PO SCH (08:45)
[2021-10-30] MEDS: FLUTICASONE 50MCG/NASAL SPRAY 16GM BOTTLE. NS SCH (08:45)
[2021-10-30] MEDS: EZETIMIBE 10 MG TABLET. PO SCH (08:45)
[2021-10-30] MEDS: CETIRIZINE HCL 10 MG TABLET. PO SCH (08:45)
[2021-10-30] MEDS: OTEZLA PO SCH ×2 (08:46→20:50)
[2021-10-30] MEDS: HYDROCORTISONE 1% TOPICAL CREAM 30GM TUBE. TP SCH ×2 (09:00→20:57)
[2021-10-30 11:00] VITALS: BP 119/60
[2021-10-30 15:00] VITALS: BP 109/56
--- NOTE | 2021-10-30 17:15 | PDOC ---
GENERAL General: Patient examined chart reviewed today's hospital day 12 for this patient who fe ll off his ladder while taking down his Pat lights fracturing his tibial plateau of his left leg also sustaining a complex fracture of his left ankle. Because of the complexity of the fractures and allowing some inflammation to decline he has just had his open reduction internal fixation of that ankle now postop day 4. Plan is for discharge to senior living early this week he and his are hoping for placement [place] but they are working with social work on following adequate skilled rehab. He is without complaint this evening. Time spent today is 30 minutes with greater than 50% in counseling and coordination of care most of which in discussion with patient regarding care plan and progress. Problems: (1) Fracture of left proximal fibula (2) Closed left ankle fracture (3) Tibial plateau fracture, left VITAL SIGNS Vital Signs/I&O: Vital Signs Date Time Temp Pulse Resp B/P (MAP) Pulse Ox O2 Delivery O2 Flow Rate FiO2 10/30/21 15:00 97.9 82 18 109/56 (73) 97 Room Air 97.9 10/29/21 20:00 2.0 I & O 10/29/21 10/29/21 10/30/21 15:00 23:00 07:00 Intake Total 360 ml 120 ml Output Total 225 ml 300 ml Balance 360 ml -105 ml -300 ml Patient sitting up in his easy chair resting comfortably no acute distress HEENT exam is unremarkable for acute abnormality Chest is clear to auscultation Heart S1-S2 normal regular rate and rhythm no murmurs or gallops are noted Abdomen soft nontender nondistended no masses or organomegaly noted Extremity exam is notable for that his postoperative left lower extremity is in an external fixator dressings are dry clean and intact ALLERGIES Allergies: Allergies Coded Allergies Type Severity Reaction Last Updated Verified cephalexin Allergy Intermediate 10/20/21 Yes erythromycin base Allergy Intermediate 10/20/21 Yes latex Allergy Intermediate 10/20/21 Yes sulfamethoxazole Allergy Intermediate 10/20/21 Yes trimethoprim Allergy Intermediate 10/20/21 Yes vancomycin Allergy Intermediate 10/20/21 Yes MEDS Medications: Current Medications Medications (Trade) Dose Ordered Sig/Mauricio Start Time Stop Time Status Last Admin Dose Admin Albuterol Sulfate (Ventolin Neb Soln) 2.5 mg PRN DAILY PRN 10/20/21 18:45 Amlodipine Besylate (Norvasc) 2.5 mg DAILY 10/20/21 09:00 10/29/21 08:54 Bupivacaine HCl/ Epinephrine Bitart (Sensorcain-Epi 0.5% Kit) 30 ml STK-MED ONCE 10/26/21 11:51 10/26/21 11:52 DC 10/26/21 13:03 Cefazolin Sodium (Ancef) 2 gm Q8HRS 10/26/21 14:00 10/27/21 14:00 UNV Cefazolin Sodium/ Dextrose 50 ml @ 100 mls/hr Q8H 10/26/21 20:00 10/27/21 12:29 DC 10/27/21 11:59 Cetirizine HCl (ZyrTEC) 10 mg DAILY 10/21/21 09:00 10/30/21 08:45 Dexamethasone Sodium Phosphate (Decadron) 4 mg STK-MED ONCE 10/26/21 08:48 10/26/21 08:49 DC Docusate Sodium (Colace) 100 mg PRN DAILY PRN 10/19/21 17:30 Enoxaparin Sodium (Lovenox 40mg Syringe) 40 mg Q24H 10/28/21 21:00 10/29/21 21:15 Enoxaparin Sodium (Lovenox Per Pharmacy Prophylaxis Dosing) 1 each PRN DAILY PRN 10/19/21 17:30 10/24/21 23:00 DC EZETIMIBE (Zetia) 10 mg DAILY 10/21/21 09:00 10/30/21 08:45 Fentanyl Citrate (Fentanyl 2ml Vial) 25 mcg PRN Q3HRS PRN 10/27/21 00:45 10/27/21 21:20 Fluticasone Propionate (Flonase) 2 spray DAILY 10/21/21 09:00 10/30/21 08:45 Gabapentin (Neurontin) 300 mg 1X ONCE 10/26/21 22:15 10/26/21 22:16 DC 10/26/21 22:06 Hydrocortisone (Cortaid) 1 chloe BID 10/20/21 21:00 10/26/21 21:26 Hydromorphone HCl (Dilaudid) 2 mg STK-MED ONCE 10/26/21 14:01 10/26/21 14:01 DC Ketorolac Tromethamine (Acular) 1 drop PRN BID PRN 10/20/21 18:45 10/24/21 14:24 Ketorolac Tromethamine (Toradol 30mg Vial) 15 mg PRN Q6HRS PRN 10/19/21 17:30 10/24/21 17:29 DC 10/20/21 21:47 Levothyroxine Sodium (Synthroid) 75 mcg DAILY06 10/21/21 06:00 10/30/21 06:39 Midazolam HCl (Versed) 2 mg STK-MED ONCE 10/26/21 11:44 10/26/21 11:44 DC Morphine Sulfate (Morphine Sulfate) 2 mg STK-MED ONCE 10/26/21 13:49 10/26/21 13:49 DC Non-Formulary Medication (Albuterol Sulfate (Proventil Hfa)) 2 puff daily pr PRN 10/20/21 18:30 UNV Non-Formulary Medication (Ciclesonide (Alvesco)) 6.1 gm BID 10/20/21 21:00 UNV Non-Formulary Medication (Gabapentin ) 600 mg HS 10/27/21 21:00 10/26/21 21:52 DC Non-Formulary Medication (Otezla) 1 ea BID 10/20/21 21:00 10/30/21 08:46 Ondansetron HCl (Zofran) 4 mg STK-MED ONCE 10/26/21 08:49 10/26/21 08:49 DC Oxycodone/ Acetaminophen (Percocet 5/325) 1 tab PRN Q4HRS PRN 10/19/21 17:15 10/30/21 01:46 Pantoprazole Sodium (Protonix) 40 mg DAILYAC 10/21/21 07:30 10/30/21 06:39 Pharmacy Consult (C.diff Med Screen By Rx) 1 each 1X PRN PRN 10/20/21 03:15 Cancel Prochlorperazine Edisylate (Compazine) 5 mg PACU PRN PRN 10/26/21 06:00 10/27/21 05:59 DC Propofol (Diprivan) 200 mg STK-MED ONCE 10/26/21 08:48 10/26/21 08:48 DC Ringer's Solution 1,000 ml @ 30 mls/hr Q24H 10/26/21 06:00 10/26/21 17:59 DC Ropivacaine (Naropin 0.5%) 20 ml STK-MED ONCE 10/26/21 11:41 10/26/21 11:41 DC Zolpidem Tartrate (Ambien) 5 mg PRN QHS PRN 10/19/21 17:30 10/27/21 23:23 ASSESSMENT & PLAN A&P Plan as noted above This note was created using Mer[employer] and may have omissions and/or errors due to the nature of real-time voice appliance service technician. Justifications for Admission Other Justification CARLINE ELIAS MD Oct 30, 2021 17:15
[2021-10-30 19:00] VITALS: BP 101/54
[2021-10-30] MEDS: ENOXAPARIN 40 MG/0.4 ML SYRINGE. SQ SCH (20:50)
[2021-10-30 23:00] VITALS: BP 123/60
[2021-10-31] MEDS: LEVOTHYROXINE 75 MCG TABLET PO SCH (06:14)
[2021-10-31] MEDS: GABAPENTIN 300 MG CAPSULE. PO SCH ×3 (06:14→21:28)
[2021-10-31 07:00] VITALS: BP 167/91
[2021-10-31 08:10] LABS: BASO # 0.1 x10^3/uL (0.0-0.2); BASO % 1 % (0-3); EOS # 0.5 x10^3/uL (0.0-0.7); EOS % 5 % (0-3); HEMOGLOBIN 13.4 g/dL (13.0-17.5); LYMPH % 30 % (24-48); MEAN CORPUSCULAR HEMOGLOBIN 31 pg (25-35); MEAN CORPUSCULAR HGB CONC 34 g/dL (31-37); MEAN CORPUSCULAR VOLUME 89 fL (79-100); MONO # 0.7 x10^3/uL (0.0-1.1); MONO % 7 % (0-9); NEUT # 5.8 x10^3/uL (1.8-7.7); NEUT % 58 % (31-73); PLATELET COUNT 440 x10^3/uL (140-400); RED BLOOD COUNT 4.37 x10^6/uL (4.30-5.70); RED CELL DISTRIBUTION WIDTH 12.6 % (11.5-14.5); WHITE BLOOD COUNT 10.1 x10^3/uL (4.0-11.0)
[2021-10-31 08:28] LABS: ALBUMIN/GLOBULIN RATIO 0.5 (1.0-1.7); GFR 73.2; POTASSIUM 3.8 mmol/L (3.5-5.1); TOTAL BILIRUBIN 0.5 mg/dL (0.2-1.0); TOTAL PROTEIN 8.5 g/dL (6.4-8.2)
[2021-10-31] MEDS: HYDROCORTISONE 1% TOPICAL CREAM 30GM TUBE. TP SCH ×2 (09:00→21:00)
[2021-10-31] MEDS: FLUTICASONE 50MCG/NASAL SPRAY 16GM BOTTLE. NS SCH (10:33)
[2021-10-31] MEDS: EZETIMIBE 10 MG TABLET. PO SCH (10:33)
[2021-10-31] MEDS: OTEZLA PO SCH ×2 (10:34→21:28)
[2021-10-31] MEDS: CETIRIZINE HCL 10 MG TABLET. PO SCH (10:34)
[2021-10-31] MEDS: PANTOPRAZOLE 40 MG TABLET.DR. PO SCH (10:34)
[2021-10-31] MEDS: DOCUSATE SODIUM 100 MG CAPSULE. PO SCH (10:34)
[2021-10-31 11:00] VITALS: BP 117/65
[2021-10-31 15:00] VITALS: BP 140/69
--- NOTE | 2021-10-31 15:46 | NUR ---
Nurse's note: Patient complained of not receiving his otezla on time. He was asleep during morning rounds thus meds were administered later.
--- NOTE | 2021-10-31 16:31 | PDOC ---
GENERAL General: Patient examined chart reviewed no events overnight noted. Patient is more agitated today wants to know why he has not seen his surgeon since his surgery last week. I encouraged him to have nursing page the surgeon prior to discharge over to rehab which will hopefully happen in the next day or 2. He wanted to know exactly how many screws were placed etc. and I explained to him that I could not review that with him since I am not a surgeon. We did give him his operative report. Hopefully we can get him to rehab tomorrow and get him moving towards home. Problems: (1) Closed left ankle fracture (2) Fracture of left proximal fibula (3) Tibial plateau fracture, left VITAL SIGNS Vital Signs/I&O: Vital Signs Date Time Temp Pulse Resp B/P (MAP) Pulse Ox O2 Delivery O2 Flow Rate FiO2 10/31/21 15:00 98.8 90 16 140/69 (92) 96 Room Air 98.8 10/30/21 22:00 2.0 I & O 10/30/21 10/30/21 10/31/21 15:00 23:00 07:00 Intake Total 420 ml 240 ml 800 ml Output Total 800 ml 700 ml 1600 ml Balance -380 ml -460 ml -800 ml On general the patient is pleasant little anxious this afternoon otherwise in no acute distress HEENT exam is unremarkable for acute abnormality Chest is clear to auscultation Heart S1-S2 normal regular rate and rhythm no murmurs or gallops are noted Abdomen soft nontender nondistended no masses organomegaly noted Extremity exam is notable for that his left leg is in an external fixator. Dressings are dry clean and intact. ALLERGIES Allergies: Allergies Coded Allergies Type Severity Reaction Last Updated Verified cephalexin Allergy Intermediate 10/20/21 Yes erythromycin base Allergy Intermediate 10/20/21 Yes latex Allergy Intermediate 10/20/21 Yes sulfamethoxazole Allergy Intermediate 10/20/21 Yes trimethoprim Allergy Intermediate 10/20/21 Yes vancomycin Allergy Intermediate 10/20/21 Yes MEDS Medications: Current Medications Medications (Trade) Dose Ordered Sig/Mauricio Start Time Stop Time Status Last Admin Dose Admin Albuterol Sulfate (Ventolin Neb Soln) 2.5 mg PRN DAILY PRN 10/20/21 18:45 Amlodipine Besylate (Norvasc) 2.5 mg DAILY 10/20/21 09:00 10/31/21 10:34 Bupivacaine HCl/ Epinephrine Bitart (Sensorcain-Epi 0.5% Kit) 30 ml STK-MED ONCE 10/26/21 11:51 10/26/21 11:52 DC 10/26/21 13:03 Cefazolin Sodium (Ancef) 2 gm Q8HRS 10/26/21 14:00 10/27/21 14:00 UNV Cefazolin Sodium/ Dextrose 50 ml @ 100 mls/hr Q8H 10/26/21 20:00 10/27/21 12:29 DC 10/27/21 11:59 Cetirizine HCl (ZyrTEC) 10 mg DAILY 10/21/21 09:00 10/31/21 10:34 Dexamethasone Sodium Phosphate (Decadron) 4 mg STK-MED ONCE 10/26/21 08:48 10/26/21 08:49 DC Docusate Sodium (Colace) 100 mg PRN DAILY PRN 10/19/21 17:30 Enoxaparin Sodium (Lovenox 40mg Syringe) 40 mg Q24H 10/28/21 21:00 10/30/21 20:50 Enoxaparin Sodium (Lovenox Per Pharmacy Prophylaxis Dosing) 1 each PRN DAILY PRN 10/19/21 17:30 10/24/21 23:00 DC EZETIMIBE (Zetia) 10 mg DAILY 10/21/21 09:00 10/31/21 10:33 Fentanyl Citrate (Fentanyl 2ml Vial) 25 mcg PRN Q3HRS PRN 10/27/21 00:45 10/27/21 21:20 Fluticasone Propionate (Flonase) 2 spray DAILY 10/21/21 09:00 10/31/21 10:33 Gabapentin (Neurontin) 300 mg 1X ONCE 10/26/21 22:15 10/26/21 22:16 DC 10/26/21 22:06 Hydrocortisone (Cortaid) 1 chloe BID 10/20/21 21:00 10/30/21 20:57 Hydromorphone HCl (Dilaudid) 2 mg STK-MED ONCE 10/26/21 14:01 10/26/21 14:01 DC Ketorolac Tromethamine (Acular) 1 drop PRN BID PRN 10/20/21 18:45 10/24/21 14:24 Ketorolac Tromethamine (Toradol 30mg Vial) 15 mg PRN Q6HRS PRN 10/19/21 17:30 10/24/21 17:29 DC 10/20/21 21:47 Levothyroxine Sodium (Synthroid) 75 mcg DAILY06 10/21/21 06:00 10/31/21 06:14 Midazolam HCl (Versed) 2 mg STK-MED ONCE 10/26/21 11:44 10/26/21 11:44 DC Morphine Sulfate (Morphine Sulfate) 2 mg STK-MED ONCE 10/26/21 13:49 10/26/21 13:49 DC Non-Formulary Medication (Albuterol Sulfate (Proventil Hfa)) 2 puff daily pr PRN 10/20/21 18:30 UNV Non-Formulary Medication (Ciclesonide (Alvesco)) 6.1 gm BID 10/20/21 21:00 UNV Non-Formulary Medication (Gabapentin ) 600 mg HS 10/27/21 21:00 10/26/21 21:52 DC Non-Formulary Medication (Otezla) 1 ea BID 10/20/21 21:00 10/31/21 10:34 Ondansetron HCl (Zofran) 4 mg STK-MED ONCE 10/26/21 08:49 10/26/21 08:49 DC Oxycodone/ Acetaminophen (Percocet 5/325) 1 tab PRN Q4HRS PRN 10/19/21 17:15 10/30/21 20:50 Pantoprazole Sodium (Protonix) 40 mg DAILYAC 10/21/21 07:30 10/31/21 10:34 Pharmacy Consult (C.diff Med Screen By Rx) 1 each 1X PRN PRN 10/20/21 03:15 Cancel Prochlorperazine Edisylate (Compazine) 5 mg PACU PRN PRN 10/26/21 06:00 10/27/21 05:59 DC Propofol (Diprivan) 200 mg STK-MED ONCE 10/26/21 08:48 10/26/21 08:48 DC Ringer's Solution 1,000 ml @ 30 mls/hr Q24H 10/26/21 06:00 10/26/21 17:59 DC Ropivacaine (Naropin 0.5%) 20 ml STK-MED ONCE 10/26/21 11:41 10/26/21 11:41 DC Zolpidem Tartrate (Ambien) 5 mg PRN QHS PRN 10/19/21 17:30 10/27/21 23:23 LAB Lab: Laboratory Tests Test 10/31/21 07:15 White Blood Count 10.1 x10^3/uL (4.0-11.0) Red Blood Count 4.37 x10^6/uL (4.30-5.70) Hemoglobin 13.4 g/dL (13.0-17.5) Hematocrit 39.0 % (39.0-53.0) Mean Corpuscular Volume 89 fL (79-100) Mean Corpuscular Hemoglobin 31 pg (25-35) Mean Corpuscular Hemoglobin Concent 34 g/dL (31-37) Red Cell Distribution Width 12.6 % (11.5-14.5) Platelet Count 440 x10^3/uL (140-400) H Neutrophils (%) (Auto) 58 % (31-73) Lymphocytes (%) (Auto) 30 % (24-48) Monocytes (%) (Auto) 7 % (0-9) Eosinophils (%) (Auto) 5 % (0-3) H Basophils (%) (Auto) 1 % (0-3) Neutrophils # (Auto) 5.8 x10^3/uL (1.8-7.7) Lymphocytes # (Auto) 3.0 x10^3/uL (1.0-4.8) Monocytes # (Auto) 0.7 x10^3/uL (0.0-1.1) Eosinophils # (Auto) 0.5 x10^3/uL (0.0-0.7) Basophils # (Auto) 0.1 x10^3/uL (0.0-0.2) Sodium Level 133 mmol/L (136-145) L Potassium Level 3.8 mmol/L (3.5-5.1) Chloride Level 97 mmol/L (98-107) L Carbon Dioxide Level 27 mmol/L (21-32) Anion Gap 9 (6-14) Blood Urea Nitrogen 16 mg/dL (8-26) Creatinine 1.0 mg/dL (0.7-1.3) Estimated GFR (Cockcroft-Gault) 73.2 BUN/Creatinine Ratio 16 (6-20) Glucose Level 97 mg/dL (70-99) Calcium Level 9.0 mg/dL (8.5-10.1) Total Bilirubin 0.5 mg/dL (0.2-1.0) Aspartate Amino Transferase (AST) 28 U/L (15-37) Alanine Aminotransferase (ALT) 29 U/L (16-63) Alkaline Phosphatase 69 U/L (46-116) Total Protein 8.5 g/dL (6.4-8.2) H Albumin 3.0 g/dL (3.4-5.0) L Albumin/Globulin Ratio 0.5 (1.0-1.7) L Laboratory Tests 10/31/21 07:15 Laboratory Tests 10/31/21 07:15 ASSESSMENT & PLAN A&P Plan as noted above This note was created using [employer] and may have omissions and/or errors due to the nature of real-time voice stamping press operator. Justifications for Admission Other Justification CARLINE ELIAS MD Oct 31, 2021 16:31
[2021-10-31 19:00] VITALS: BP 108/61
[2021-10-31] MEDS: ENOXAPARIN 40 MG/0.4 ML SYRINGE. SQ SCH (21:28)
[2021-11-01 07:00] VITALS: BP 148/80
[2021-11-01] MEDS: LEVOTHYROXINE 75 MCG TABLET PO SCH (07:21)
[2021-11-01] MEDS: GABAPENTIN 300 MG CAPSULE. PO SCH ×3 (07:21→21:11)
[2021-11-01] MEDS: PANTOPRAZOLE 40 MG TABLET.DR. PO SCH (07:21)
[2021-11-01] MEDS: DOCUSATE SODIUM 100 MG CAPSULE. PO SCH (09:00)
[2021-11-01] MEDS: HYDROCORTISONE 1% TOPICAL CREAM 30GM TUBE. TP SCH ×2 (09:00→21:00)
[2021-11-01] MEDS: FLUTICASONE 50MCG/NASAL SPRAY 16GM BOTTLE. NS SCH (09:26)
[2021-11-01] MEDS: CETIRIZINE HCL 10 MG TABLET. PO SCH (09:26)
[2021-11-01] MEDS: EZETIMIBE 10 MG TABLET. PO SCH (09:26)
[2021-11-01] MEDS: OTEZLA PO SCH ×2 (09:27→21:12)
[2021-11-01] MEDS: KETOROLAC TROMETHAMINE 0.5% OPHTH SOLUTION 5ML BOTTLE. OU PRN (09:27)
--- NOTE | 2021-11-01 10:30 | PDOC ---
[employer] PROGRESS NOTE Date of Service DOS: DATE: 11/01/21 TIME: 10:30 Chief Complaint Chief Complaint Fall from 15 foot ladder with the following ankle fractures Fractures of the lateral and medial tibial plateaus posteriorly with 8 mm and 3 mm of depression, respectively - non-operative treatment. hinged knee brace Segmental fibular shaft fracture with proximal and distal diaphyseal components and Medial and posterior malleolar fractures and Probable avulsion fracture of the anterolateral rim of the distal tibia - s/p ORIF 10/26/21 HTN Hyperlipidemia Psoriasis Hypothyroidism History of Present Illness History of Present Illness 11/01: Seen and examined. Work with therapy still in some pain. Wearing hinged knee brace dressing clean dry and intact no numbness or tingling. Hb stable. No shortness of breath or chest pain. He is looking into acute rehab. 10/29/2021 Patient seen and examined Patient in NAD POD#3: ordered PT/OT and discuss dispo Discussed with RN Discussed with case management Chart reviewed 10/28/2021 Patient seen and examined Patient in NAD, relaxed and cooperative Discussed complaints of pain but says medications help POD#2: Once surgery approves weight bearing status will begin PT/OT and discuss dispo Discussed with RN Discussed with case management Chart reviewed 10/27/2021 Patient seen and examined Discussed with RN Discussed with case management Chart reviewed POD#1; per surgery team, patient is non-weight bearing Patient in no acute distress 10/26/2021 Patient seen and examined Discussed with RN Discussed with case management Chart reviewed Surgery scheduled for today at 11:15 am 10/25/2021 Patient seen and examined Discussed with RN Discussed with case management Chart reviewed Surgery tomorrow 10/2610/24/2021 Patient seen and examined Discussed with RN Discussed with case management Chart reviewed Surgery still scheduled for upcoming Monday10/23/2021 Patient seen and examined Discussed with RN Chart reviewed Still awaiting surgery Monday10/22/2021 Patient seen and examined Discussed with RN Discussed with case management Surgery team wants to wait until next Monday because there is so much tissue damage, swelling around the fractures that it puts the patient at high risk for postoperative complications 10/21/2021 Patient seen and examined Discussed with RN Discussed with case management Discussed with Dr. White Per orthopedics , surgery is on hold until next Monday because there is so much tissue damage, swelling around the fractures that it puts the patient at high risk for postoperative complications unless we wait a few days, agree. 10/20/2021 Patient seen and examined Discussed with RN Chart reviewed Discussed with case management He is going to the OR later Vitals/I&O Vitals/I&O: Vital Signs Date Time Temp Pulse Resp B/P (MAP) Pulse Ox O2 Delivery O2 Flow Rate FiO2 11/01/21 09:26 80 148/80 11/01/21 07:00 98.0 18 96 Room Air 98.0 I & O 10/31/21 10/31/21 11/01/21 14:59 22:59 06:59 Intake Total 420 ml 240 ml Output Total 100 ml 0 ml Balance 420 ml 140 ml 0 ml Physical Exam General: Alert, Oriented X3 Heart: Regular rate Abdomen: Soft, No tenderness Extremities: Normal pulses Skin: No rashes, No breakdown Assessment and Plan Assessmemt and Plan Problems Medical Problems: (1) Closed left ankle fracture Status: Acute (2) Fracture of left proximal fibula Status: Acute (3) Tibial plateau fracture, left Status: Acute Comment Review of Relevant I have reviewed the following items maria isabel (where applicable) has been applied. Justifications for Admission Other Justification AZALIA MUNOZ MD Nov 01, 2021 10:30
[2021-11-01 11:00] VITALS: BP 118/71
[2021-11-01] MEDS ORDERED: AMLO-186 PO (11:12)
[2021-11-01] MEDS ORDERED: DOCU-109 PO (11:12)
[2021-11-01] MEDS ORDERED: ENOX40DI3 SQ (11:12)
--- NOTE | 2021-11-01 14:39 | NUR ---
ESTEFANI following. Discussed with RN, pt from home with , room air, regular diet. Pt accepted at [facility] pending insurance approval. Pt's , Yoselin notified and still in agreement. ESTEFANI will continue to follow. Addendum: 11/01/21 at 1440 by BOBBY JARA ESTEFANI requested repeat PCR this morning for placement.
[2021-11-01] MEDS ORDERED: APRE30TA2 PO (14:50)
[2021-11-01] MEDS ORDERED: OXYC1TAB15 PO (14:50)
--- NOTE | 2021-11-01 14:55 | SNU/HH DC ---
DISCHARGE ORDERS DISCHARGE INFORMATION: DISCHARGE DATE: Nov 02, 2021 FINAL DIAGNOSIS Problems Medical Problems: (1) Closed left ankle fracture Status: Acute (2) Fracture of left proximal fibula Status: Acute (3) Tibial plateau fracture, left Status: Acute CONDITION ON DISCHARGE: Stable CODE STATUS: Code Status: Full [facility]: SNF STAY <30 DAYS: Yes POST DISCHARGE ORDERS: ACTIVITY ORDERS: Resume previous activity WEIGHT BEARING STATUS: Touch down weight bearing BATHING ORDERS: Shower-keep dressing dry, No Tub Bath until see DIET AFTER DISCHARGE: Regular WOUND/INCISION CARE: Ice to area for comfort, Keep wound/cast CDI, Keep wound elevated, Do not change dressing, Reinforce dressing PRN OTHER WOUND INSTRUCTIONS: Hinged knee immobilizer when ambulating. CHECKS AFTER DISCHARGE: CHECKS AFTER DISCHARGE: Check blood press - daily, Check your Temp as needed FOLLOW-UP: Additional Instructions: Needs follow up between 11/07/2021-11/09/2021 [facility] [address] [place] [address] Or [facility] Orthopedic surgery - Dr. Mian White [address] [facility] [place] [address] P: TREATMENT/EQUIPMENT ORDERS: Physical Therapy For: Evalulation/Treatment Occupational Therapy For: Evaluation/Treatment DISCHARGE MEDICATIONS: Home Meds Active Scripts Apremilast (Otezla) 30 Mg Tablet, 1 TAB PO BID for Psoriasis for 30 Days, #60 TAB 0 Refills Prov:AZALIA MUNOZ MD 11/01/21 Oxycodone/Apap 5-325 (PERCOCET 5-325 MG TABLET ) 1 Each Tablet, 1 TAB PO PRN Q4HRS PRN for PAIN for 6 Days, #20 TAB Prov:AZALIA MUNOZ MD 11/01/21 Docusate Sodium (COLACE) 100 Mg Capsule, 100 MG PO DAILY for Constipation for 30 Days, #30 CAP 3 Refills Prov:AZALIA MUNOZ MD 11/01/21 Amlodipine Besylate (AMLODIPINE BESYLATE) 5 Mg Tablet, 2.5 MG PO DAILY for HTN for 30 Days, #15 TAB 3 Refills Prov:AZALIA MUNOZ MD 11/01/21 Enoxaparin Sodium (ENOXAPARIN SODIUM) 40 Mg/0.4 Ml Disp.syrin, 40 MG SQ Q24H for DVT ppx for 12 Days, #12 DIS.SYR Prov:AZALIA MUNOZ MD 11/01/21 Reported Medications Gabapentin (GABAPENTIN) 600 Mg Tablet, 600 MG PO HS for NEUROGENIC PAIN, TAB 10/26/21 Desonide (DESONIDE) 15 Gm Oint...g., 1 DACIA TP BID for psoriasis/face, #60 GM 0 Refills apply to affected area(s) 10/19/21 Pantoprazole Sodium (PANTOPRAZOLE SODIUM ) 40 Mg Tablet.dr, 40 MG PO DAILYAC for GERD, TAB 10/19/21 Apremilast (Otezla) 30 Mg Tablet, 1 TAB PO BID for psoriasis on hands for 30 Days, #60 TAB 0 Refills 10/19/21 Gabapentin (GABAPENTIN ) 300 Mg Capsule, 300 MG PO BID for NEUROGENIC PAIN, CAP 7:00 AM and 2:00 pm 10/19/21 Levothyroxine Sodium (SYNTHROID) 75 Mcg Tablet, 1 TAB PO DAILY for thyroid, #30 TAB 5 Refills 10/19/21 [patenol] No Conflict Check, 1 PRN BID PRN for ALLERGIES 10/19/21 Fluticasone Propionate (Xhance) 16 Ml Aer.br.act, 16 ML NS DAILY for allergies 10/19/21 [levecetrizi] No Conflict Check, 5 MG PO DAILY for hayfever 10/19/21 Albuterol Sulfate (Proventil Hfa) 6.7 Gm Hfa.aer.ad, 2 PUFF INH daily pr PRN for SHORTNESS OF BREATH, EACH 10/19/21 Ezetimibe (ZETIA) 10 Mg Tablet, 1 TAB PO DAILY for cholesterol for 30 Days, #30 TAB 0 Refills 10/19/21 Ciclesonide (ALVESCO) 6.1 Gm Hfa.aer.ad, 6.1 GM IH BID for asthma/allergies, INHALER 10/19/21 AZALIA MUNOZ MD Nov 01, 2021 14:55
[2021-11-01 15:00] VITALS: BP 126/57
[2021-11-01 19:00] VITALS: BP 132/64
[2021-11-01] MEDS: ENOXAPARIN 40 MG/0.4 ML SYRINGE. SQ SCH (21:12)
[2021-11-01 23:00] VITALS: BP 146/73
[2021-11-02] MEDS: PANTOPRAZOLE 40 MG TABLET.DR. PO SCH (05:57)
[2021-11-02] MEDS: GABAPENTIN 300 MG CAPSULE. PO SCH ×3 (05:58→21:23)
[2021-11-02] MEDS: LEVOTHYROXINE 75 MCG TABLET PO SCH (05:58)
[2021-11-02 07:00] VITALS: BP 149/71
[2021-11-02] MEDS: DOCUSATE SODIUM 100 MG CAPSULE. PO SCH (10:04)
[2021-11-02] MEDS: EZETIMIBE 10 MG TABLET. PO SCH (10:04)
[2021-11-02] MEDS: CETIRIZINE HCL 10 MG TABLET. PO SCH (10:05)
[2021-11-02] MEDS: OTEZLA PO SCH ×2 (10:06→21:24)
[2021-11-02] MEDS: HYDROCORTISONE 1% TOPICAL CREAM 30GM TUBE. TP SCH ×2 (10:06→20:01)
[2021-11-02] MEDS: FLUTICASONE 50MCG/NASAL SPRAY 16GM BOTTLE. NS SCH (10:06)
[2021-11-02 11:00] VITALS: BP 120/63
--- NOTE | 2021-11-02 11:31 | PDOC ---
[employer] PROGRESS NOTE Date of Service DOS: DATE: 11/02/21 TIME: 11:30 Chief Complaint Chief Complaint Fall from 15 foot ladder with the following ankle fractures Fractures of the lateral and medial tibial plateaus posteriorly with 8 mm and 3 mm of depression, respectively - non-operative treatment. hinged knee brace Segmental fibular shaft fracture with proximal and distal diaphyseal components and Medial and posterior malleolar fractures and Probable avulsion fracture of the anterolateral rim of the distal tibia - s/p ORIF 10/26/21 HTN Hyperlipidemia Psoriasis Hypothyroidism History of Present Illness History of Present Illness 11/02: Seen and examined bedside. Pain is better controlled. No shortness of breath or chest pain. Has rehab approval with insurance. Wants to know when his dressing can be taken down I discussed with him its 12 to 14 days postoperatively. 11/01: Seen and examined. Work with therapy still in some pain. Wearing hinged knee brace dressing clean dry and intact no numbness or tingling. Hb stable. No shortness of breath or chest pain. He is looking into acute rehab. 10/29/2021 Patient seen and examined Patient in NAD POD#3: ordered PT/OT and discuss dispo Discussed with RN Discussed with case management Chart reviewed 10/28/2021 Patient seen and examined Patient in NAD, relaxed and cooperative Discussed complaints of pain but says medications help POD#2: Once surgery approves weight bearing status will begin PT/OT and discuss dispo Discussed with RN Discussed with case management Chart reviewed 10/27/2021 Patient seen and examined Discussed with RN Discussed with case management Chart reviewed POD#1; per surgery team, patient is non-weight bearing Patient in no acute distress 10/26/2021 Patient seen and examined Discussed with RN Discussed with case management Chart reviewed Surgery scheduled for today at 11:15 am 10/25/2021 Patient seen and examined Discussed with RN Discussed with case management Chart reviewed Surgery tomorrow 10/2610/24/2021 Patient seen and examined Discussed with RN Discussed with case management Chart reviewed Surgery still scheduled for upcoming Monday10/23/2021 Patient seen and examined Discussed with RN Chart reviewed Still awaiting surgery Monday10/22/2021 Patient seen and examined Discussed with RN Discussed with case management Surgery team wants to wait until next Monday because there is so much tissue damage, swelling around the fractures that it puts the patient at high risk for postoperative complications 10/21/2021 Patient seen and examined Discussed with RN Discussed with case management Discussed with Dr. White Per orthopedics , surgery is on hold until next Monday because there is so much tissue damage, swelling around the fractures that it puts the patient at high risk for postoperative complications unless we wait a few days, agree. 10/20/2021 Patient seen and examined Discussed with RN Chart reviewed Discussed with case management He is going to the OR later Vitals/I&O Vitals/I&O: Vital Signs Date Time Temp Pulse Resp B/P (MAP) Pulse Ox O2 Delivery O2 Flow Rate FiO2 11/02/21 10:05 72 149/71 11/02/21 07:00 98.0 18 98 Room Air 98.0 I & O 11/01/21 11/01/21 11/02/21 14:59 22:59 06:59 Intake Total 360 ml 300 ml 320 ml Output Total 900 ml 600 ml Balance 360 ml -600 ml -280 ml Physical Exam General: Alert, Oriented X3 Heart: Regular rate Abdomen: Soft, No tenderness Extremities: Normal pulses Skin: No rashes, No breakdown Assessment and Plan Assessmemt and Plan Problems Medical Problems: (1) Closed left ankle fracture Status: Acute (2) Fracture of left proximal fibula Status: Acute (3) Tibial plateau fracture, left Status: Acute Comment Review of Relevant I have reviewed the following items maria isabel (where applicable) has been applied. Justifications for Admission Other Justification AZALIA MUNOZ MD Nov 02, 2021 11:31
[2021-11-02 15:00] VITALS: BP 132/66
[2021-11-02] MEDS: oxyCODONE/APAP 5/325 1 TAB TABLET PO PRN ×2 (18:14→20:09)
[2021-11-02 18:26] LABS: BILIRUBIN,URINE NEGATIVE (NEG); CLARITY,URINE CLEAR; COLOR,URINE YELLOW; NITRITE,URINE NEGATIVE (NEG); PH,URINE 6.5 (<5.0-8.0); PROTEIN,URINE NEGATIVE (NEG-TRACE); UROBILINOGEN,URINE 0.2 mg/dL (0.2 mg/dL)
[2021-11-02 18:48] LABS: BACTERIA,URINE 0 /HPF (0-FEW)
[2021-11-02 19:00] VITALS: BP 128/73
[2021-11-02] MEDS: ENOXAPARIN 40 MG/0.4 ML SYRINGE. SQ SCH (21:24)
[2021-11-03 03:05] VITALS: BP 151/68
[2021-11-03] MEDS: oxyCODONE/APAP 5/325 1 TAB TABLET PO PRN ×2 (03:12→13:33)
[2021-11-03] MEDS: GABAPENTIN 300 MG CAPSULE. PO SCH ×2 (06:05→08:11)
[2021-11-03] MEDS: LEVOTHYROXINE 75 MCG TABLET PO SCH (06:05)
[2021-11-03] MEDS: PANTOPRAZOLE 40 MG TABLET.DR. PO SCH ×2 (06:05→08:11)
[2021-11-03 07:30] VITALS: BP 144/77
[2021-11-03] MEDS: FLUTICASONE 50MCG/NASAL SPRAY 16GM BOTTLE. NS SCH (08:10)
[2021-11-03] MEDS: DOCUSATE SODIUM 100 MG CAPSULE. PO SCH ×2 (08:11→09:00)
[2021-11-03] MEDS: EZETIMIBE 10 MG TABLET. PO SCH (08:11)
[2021-11-03] MEDS: CETIRIZINE HCL 10 MG TABLET. PO SCH (08:12)
[2021-11-03] MEDS: OTEZLA PO SCH (08:13)
[2021-11-03] MEDS: HYDROCORTISONE 1% TOPICAL CREAM 30GM TUBE. TP SCH (08:14)
[2021-11-03 11:05] VITALS: BP_SYST 112; BP_SYST 131; BP_DIAS 53; BP_DIAS 65
--- NOTE | 2021-11-03 11:22 | SNU/HH DC ---
DISCHARGE ORDERS DISCHARGE INFORMATION: DISCHARGE DATE: Nov 02, 2021 FINAL DIAGNOSIS Problems Medical Problems: (1) Closed left ankle fracture Status: Acute (2) Fracture of left proximal fibula Status: Acute (3) Tibial plateau fracture, left Status: Acute CONDITION ON DISCHARGE: Stable CODE STATUS: Code Status: Full POST DISCHARGE ORDERS: ACTIVITY ORDERS: Resume previous activity WEIGHT BEARING STATUS: Touch down weight bearing BATHING ORDERS: Shower-keep dressing dry, No Tub Bath until see Dr. MURPHY AFTER DISCHARGE: Regular WOUND/INCISION CARE: Ice to area for comfort, Keep wound/cast CDI, Keep wound elevated, Do not change dressing, Reinforce dressing PRN OTHER WOUND INSTRUCTIONS: Hinged knee immobilizer when ambulating. CHECKS AFTER DISCHARGE: CHECKS AFTER DISCHARGE: Check blood press - daily, Check your Temp as needed FOLLOW-UP: PHYSICIAN FOLLOW-UP: PCP within 2 weeks of discharge ADDITIONAL FOLLOW-UP: Orthopedic surgery as needed or as scheduled TREATMENT/EQUIPMENT ORDERS: Physical Therapy For: Evalulation/Treatment Occupational Therapy For: Evaluation/Treatment DISCHARGE MEDICATIONS: Home Meds Active Scripts Apremilast (Otezla) 30 Mg Tablet, 1 TAB PO BID for Psoriasis for 30 Days, #60 TAB 0 Refills Prov:AZALIA MUNOZ MD 11/01/21 Oxycodone/Apap 5-325 (PERCOCET 5-325 MG TABLET ) 1 Each Tablet, 1 TAB PO PRN Q4HRS PRN for PAIN for 6 Days, #20 TAB Prov:AZALIA MUNOZ MD 11/01/21 Docusate Sodium (COLACE) 100 Mg Capsule, 100 MG PO DAILY for Constipation for 30 Days, #30 CAP 3 Refills Prov:AZALIA MUNOZ MD 11/01/21 Amlodipine Besylate (AMLODIPINE BESYLATE) 5 Mg Tablet, 2.5 MG PO DAILY for HTN for 30 Days, #15 TAB 3 Refills Prov:AZALIA MUNOZ MD 11/01/21 Enoxaparin Sodium (ENOXAPARIN SODIUM) 40 Mg/0.4 Ml Disp.syrin, 40 MG SQ Q24H for DVT ppx for 12 Days, #12 DIS.SYR Prov:AZALIA MUNOZ MD 11/01/21 Reported Medications Gabapentin (GABAPENTIN) 600 Mg Tablet, 600 MG PO HS for NEUROGENIC PAIN, TAB 10/26/21 Desonide (DESONIDE) 15 Gm Oint...g., 1 DACIA TP BID for psoriasis/face, #60 GM 0 Refills apply to affected area(s) 10/19/21 Pantoprazole Sodium (PANTOPRAZOLE SODIUM ) 40 Mg Tablet.dr, 40 MG PO DAILYAC for GERD, TAB 10/19/21 Apremilast (Otezla) 30 Mg Tablet, 1 TAB PO BID for psoriasis on hands for 30 Days, #60 TAB 0 Refills 10/19/21 Gabapentin (GABAPENTIN ) 300 Mg Capsule, 300 MG PO BID for NEUROGENIC PAIN, CAP 7:00 AM and 2:00 pm 10/19/21 Levothyroxine Sodium (SYNTHROID) 75 Mcg Tablet, 1 TAB PO DAILY for thyroid, #30 TAB 5 Refills 10/19/21 Fluticasone Propionate (Xhance) 16 Ml Aer.br.act, 16 ML NS DAILY for allergies 10/19/21 [levecetrizi] No Conflict Check, 5 MG PO DAILY for hayfever 10/19/21 Albuterol Sulfate (Proventil Hfa) 6.7 Gm Hfa.aer.ad, 2 PUFF INH daily pr PRN for SHORTNESS OF BREATH, EACH 10/19/21 Ezetimibe (ZETIA) 10 Mg Tablet, 1 TAB PO DAILY for cholesterol for 30 Days, #30 TAB 0 Refills 10/19/21 Ciclesonide (ALVESCO) 6.1 Gm Hfa.aer.ad, 6.1 GM IH BID for asthma/allergies, INHALER 10/19/21 Discontinued Reported Medications [patenol] No Conflict Check, 1 PRN BID PRN for ALLERGIES 10/19/21 TRINY MCKEON MD Nov 03, 2021 11:21
--- NOTE | 2021-11-03 14:17 | NUR ---
SW following. Discussed with RN, discharge orders faxed to [facility]. Transportation arranged with [facility] transport for 1400. RN and [facility] notified. SW notified pt's of discharge and advised of medications she would need to take to [facility]. No further SW needs.
--- NOTE | 2021-11-03 14:45 | NUR ---
Report given to Ema RINALDI at [facility]. 2 IV discontinued by this RN. PAtient wheeled to [facility] by our transportation team with belongings.
[2021-11-03 14:50] VITALS: BP 127/70
== END 2021-11-03 14:45 | DRG 494 ==
LOC: ER 11:30 → ED HOLD 13:30 → 5 SOUTH 15:04
PROVIDERS: ADMIT Internal Medicine; ATTEND Internal Medicine
PROC: 0QSH04Z Reposition Left Tibia with Internal Fixation Device, Open Approach (ICD-10-PCS; 2021-10-26)
PROC: 0QSH04Z Reposition Left Tibia with Internal Fixation Device, Open Approach (ICD-10-PCS; principal; 2021-10-26 11:50)
DX: S82.852A Displaced trimalleolar fracture of left lower leg, initial encounter for closed fracture (principal); E03.9 Hypothyroidism, unspecified; E78.5 Hyperlipidemia, unspecified; I10 Essential (primary) hypertension; L40.9 Psoriasis, unspecified; M19.90 Unspecified osteoarthritis, unspecified site; Z88.8 Allergy status to other drugs, medicaments and biological substances; Z88.1 Allergy status to other antibiotic agents; Z91.040 Latex allergy status; Z20.822 Contact with and (suspected) exposure to COVID-19; W01.0XXA Fall on same level from slipping, tripping and stumbling without subsequent striking against object, initial encounter; Y93.89 Activity, other specified; Y92.89 Other specified places as the place of occurrence of the external cause; Y99.8 Other external cause status
CPT/HCPCS: 29505; 36415; 73030; 73700; 76000; 80053; 81001; 85025; 87426; 96374; A4452; A4930; A6253; A6402; A6449; A6455; C1713; J0690; J1100; J1170; J1650; J1885; J2250; J2270; J2405; J2704; J2795; J3010; U0003; U0005; 97110-GO; 97110-GP; 97116-GP; 97530-GO; 97530-GP; 97535-GO; 99285-25; G0378